=== PATIENT | female | born 1940 | race Caucasian/White ===

== ENCOUNTER 2022-11-15 21:53 | Inpatient (IN) ==
[2022-11-15] MEDS ORDERED: ACETAMINOPHEN 1,000 MG/100 ML BAG IV ONE (22:13)
[2022-11-15 22:42] LABS: BASOPHILS % (AUTO) 0.8 % (0.0-3.0); HEMATOCRIT 37.8 % (37.0-47.0); HEMOGLOBIN 12.7 g/dl (12.0-16.0); LYMPHOCYTES # (AUTO) 0.3 K/uL (0.60-3.4); LYMPHOCYTES % (AUTO) 23.4 (10.0-50.0); MEAN CORPUSCULAR HEMOGLOBIN 27.9 pg (27.0-31.0); MEAN CORPUSCULAR HGB CONC 33.6 (31.8-35.4); MEAN CORPUSCULAR VOLUME 83.1 fl (81.0-99.0); MONOCYTES # (AUTO) 0.1 K/uL (0.4-2.0); MONOCYTES % (AUTO) 7.8 (0-10); NEUTROPHILS # (AUTO) 0.9 K/ul (2.0-6.9); RDW COEFFICIENT OF VARIATION 13.1 % (11.6-14.8); RED BLOOD COUNT 4.55 10^6/ul (4.20-5.40)
--- NOTE | 2022-11-15 22:42 | ED.PDOC ---
General ED Provider: Dr. LAKHWINDER GONZALES DO Chief Complaint: Weakness Stated Complaint: Patient is a 82 yo F here for AMS Patient arrives febrile 101 with oxygen saturation 92% Patient smoked for 30 years but quit a long time ago Patient alert and oriented to self and location Patient wants to sleep and has no complaints Daughters report she is complaining of being cold and forgetting simple things for the last three days Patient has pneumonia recently and discharged on home oxygen but "she has not used it, she does not like it" Patient denies falls or injuires She is prescribed valium and norco but daughter gives it to her and has has not required it Patient has no recent surgeries Patient stable Time Seen by Provider: 11/15/22 22:00 Information Source: Patient and Family Primary Care Provider: JOSE DE LA TORRE MD Nursing and Triage Documentation Reviewed and Agree: Yes Does patient meet sepsis criteria?: Yes If yes, has appropriate treatment been initiated?: Yes System Inflammatory Response Syndrome: Temp 101F or Greater and Pulse >90 BPM Sepsis Protocol: For patient's 13 years and over: Temp is 96.8 and below OR 101 and greater Pulse >90 BPM Resp >20/minute Acutely Altered Mental Status Are patient's symptoms suggestive of a new infection, such as: -Pneumonia -Skin, Soft Tissue -Endocarditis -UTI -Bone, Joint Infection -Implantable Device -Acute Abdominal Infection -Wound Infection -Meningitis -Blood Stream Catheter Infection -Unknown Review of Systems Review Of Systems Constitutional: Denies Chills, Diaphoresis or Fever Eyes: Denies Blindness, Blurred vision or Vision change Ears, Nose, Mouth, Throat: Denies Ear pain, Ear discharge or Nose pain Respiratory: Denies Cough, Orthopnea or Short of air Cardiac: Denies Chest pain, Edema or Irregular heart rate GI: Denies Abdomen distended, Abdominal pain or Blood streaked bowels : Denies Burning, Dysuria, Discharge or Frequency Musculoskeletal: Denies Back pain, Gout, Joint pain or Joint swelling Skin: Denies Bruising, Change in color or Change in hair/nails Neurological: Denies Anxiety, Depressed or Emotional problems Endocrine: Reports No symptoms Hematologic/Lymphatic: Reports No symptoms All Other Systems: Reviewed and Negative PENDING SALE TO [facility] Medical History (Updated 11/16/22 @ 02:35 by LAKHWINDER GONZALES DO) Anemia D64.9 - Anemia, unspecified (ICD-10) Ankle fracture, right S82.891A - Other fracture of right lower leg, initial encounter for closed fracture (ICD-10) B12 deficiency E53.8 - Deficiency of other specified B group vitamins (ICD-10) Dyslipidemia E78.5 - Hyperlipidemia, unspecified (ICD-10) GERD (gastroesophageal reflux disease) K21.9 - Gastro-esophageal reflux disease without esophagitis (ICD-10) Hyperglycemia R73.9 - Hyperglycemia, unspecified (ICD-10) Irritable bowel syndrome K58.9 - Irritable bowel syndrome without diarrhea (ICD-10) Pacemaker Z95.0 - Presence of cardiac pacemaker (ICD-10) Presence of stent in coronary artery in patient with coronary artery disease I25.10 - Atherosclerotic heart disease of [place] coronary artery without angina pectoris (ICD-10) Z95.5 - Presence of coronary angioplasty implant and graft (ICD-10) Vitamin D deficiency E55.9 - Vitamin D deficiency, unspecified (ICD-10) Family History DAUGHTER Cancer FATHER Lung cancer Social History Smoking and tobacco status: Former smoker Alcohol intake: never Substance use type: does not use Adopted: No Caregiver/support person: No Foster care: No Household members: children Marital status: W / Lives independently: No Number of children: 4 Current occupational status: retired Do you think of yourself as: straight/heterosexual Current gender identity: female Seatbelt use: always Drives intoxicated or rides with intoxicated ross carrier driver: No Water heater temperature set < 120 degrees: Yes Working smoke detector in home: Yes Fire extinguisher in home: Yes Carbon monoxide detector in home: Yes Surgical History (Updated 07/10/22 @ 11:42 by MANJINDER NEVES APRN) H/O heart artery stent Z95.5 - Presence of coronary angioplasty implant and graft (ICD-10) History of arthroplasty of right ankle Z98.890 - Other specified postprocedural states (ICD-10) History of partial hysterectomy Z90.711 - Acquired absence of uterus with remaining cervical stump (ICD-10) Hx of appendectomy Z90.49 - Acquired absence of other specified parts of digestive tract (ICD- 10) Female Reproductive History Menstrual Hx Hysterectomy: Yes Physical Exam Physical Exam Appearance: Reports Well-appearing, Well-nourished and Thin Ill-appearing: Mild Pain Distress: Not Applicable Eyes: Reports LUDWIG, EOMI and Conjunctiva clear ENT: Reports Ears normal, Nose normal and Oropharynx normal; Denies TMs Occluded, Epistaxis, Erythema or Exudate Neck: Supple Respiratory: Reports Airway patent, Breath sounds clear and Breath sounds equal; Denies Crackles, Rhonchi or Wheezes Cardiovascular: Reports RRR and Pulses normal; Denies No rub GI/: Reports Soft, Nontender and Other (suprapubic ttp, no anton sign, no [place] ttp, no fluid wave) Musculoskeletal: Reports Normal strength and ROM intact Skin: Reports Warm and Dry Neurological: Reports Sensation intact and Motor intact Psychiatric: Reports Affect appropriate and Mood appropriate Interpretation Radiology Interpretation Radiology Interpretation By: ED Physician Radiology Results: Negative Exam Interpreted: CXR Xray Comments: no pneumothorax, no rib fracutes L chest wall Cardiac device EKG Interpretation Time of EKG #1: 22:28 Rate: Tachy Rhythm: Other (afib) Ectopy: None [place]: [place] ST Segment: Normal Interpretation: afib rate 106 no stemi no qt prolongation Critical Care Note Critical Care Note Total Critical Care Time (mins): 0 Course Course 11/15/22 22:35 11/15/22 22:35 Orders, Labs, Meds: Lab Review 11/15/22 11/15/22 11/16/22 22:35 23:00 01:25 WBC 1.28 L* RBC 4.55 Hgb 12.7 Hct 37.8 MCV 83.1 MCH 27.9 MCHC 33.6 RDW Coeff of Felix 13.1 Plt Count 74 L Immature Gran % (Auto) 0.0 Neut % (Auto) 68.0 Lymph % (Auto) 23.4 Luce % (Auto) 7.8 Eos % (Auto) 0.0 Baso % (Auto) 0.8 Neut # (Auto) 0.9 L Lymph # (Auto) 0.3 L Luce # (Auto) 0.1 L Eos # (Auto) 0.0 Baso # (Auto) 0.0 Immature Gran # (Auto) 0.0 Sodium 126.6 L Potassium 4.90 Chloride 95.8 L Carbon Dioxide 26.2 Anion Gap 9.50 BUN 24.3 H Creatinine 1.10 Estimated GFR (MDRD) 47.00 BUN/Creatinine Ratio 22.09 Glucose 102.3 Lactic Acid 0.84 Calcium 7.75 L Total Bilirubin 0.48 AST 109.1 H ALT 32.7 Alkaline Phosphatase 66.2 Troponin I 0.071 Total Protein 6.44 Albumin 3.61 Globulin 2.83 Albumin/Globulin Ratio 1.27 TSH 3.090 Free T4 1.40 Urine Color Yellow Urine Clarity Clear Urine pH 6.0 Ur Specific [place] 1.015 Urine Protein 3+ H Urine Glucose (UA) Negative Urine Ketones Negative Urine Blood Negative Urine Nitrite Negative Urine Bilirubin Negative Urine Urobilinogen 0.2 Ur Leukocyte Esterase Negative Urine Microscopic WBC 0-2 Ur Squamous Epith Cells Not present Amorphous Sediment 3+ Urine Bacteria Trace Urine Opiates Screen Positive H Ur Oxycodone Screen Negative Urine Methadone Screen Negative Ur Propoxyphene Screen Negative Ur Barbiturates Screen Negative U Tricyclic Antidepress Negative Ur Phencyclidine Scrn Negative Ur Amphetamine Screen Negative U Methamphetamines Scrn Negative U Benzodiazepines Scrn Positive H Urine Cocaine Screen Negative U Cannabinoids Screen Negative SARS CoV-2 RNA Rapid WON Negative Orders Category Date Time Status EKG-(ED ONLY) Stat CARDIO 11/15/22 22:12 Completed VBG DRAW REQUEST Stat CARDIO 11/15/22 22:15 Completed NPO REMINDER: IMAGING ONCE CARE 11/15/22 23:08 Completed BLOOD CULTURE Stat LAB 11/15/22 00:21 Received CBC W/ AUTO DIFF Stat LAB 11/15/22 22:35 Completed COMPREHENSIVE METABOLIC PANEL Stat LAB 11/15/22 22:35 Completed COVID [SARS COV-2 RNA RAPID WON] Stat LAB 11/15/22 23:00 Completed DRUG SCREEN (RAPID FOR ED) [DRUG SCREEN, URINE, RAPID] LAB 11/16/22 01:25 Completed Stat FREE T4 (FREE THYROXINE) Stat LAB 11/15/22 22:35 Completed LACTIC ACID Stat LAB 11/15/22 22:35 Completed OSMOLALITY,URINE Stat LAB 11/15/22 00:21 Received SERUM OSMOLALITY Stat LAB 11/15/22 00:21 Received THYROID STIMULATING HORMONE Stat LAB 11/15/22 22:35 Completed TROPONIN I Stat LAB 11/15/22 22:35 Completed TROPONIN I Stat LAB 11/16/22 02:24 Received UA [URINALYSIS C & S IF INDICATED] Stat LAB 11/16/22 01:25 Completed Acetaminophen Meds 11/15/22 22:13 Discontinued 1,000 mg in 100 ml IV ONCE Ceftriaxone/D5w 1 gm Premix [Rocephin 1 gm/50 ml D5w] Meds 11/15/22 23:06 Discontinued 1 gm in 50 ml IV ONCE Doxycycline Hyclate Inj [Doxy-100] 100 mg Meds 11/15/22 23:06 Discontinued 0.9 % Sodium Chloride [Sodium Chloride 100Ml] 100 ml IV ONCE Sodium Chloride 0.9% [Sodium Chloride] 1,000 ml Meds 11/16/22 02:33 Active IV 125 mls/hr Sodium Chloride 0.9% [Sodium Chloride] 1,000 ml Meds 11/15/22 23:06 Discontinued IV BOLUS Sodium Chloride 0.9% [Sodium Chloride] 500 ml Meds 11/16/22 00:[address] ABDOMEN/PELVIS W CONTRAST Stat RADS 11/15/22 23:[address] CHEST PE PROTOCOL Stat RADS 11/15/22 23:[address] HEAD W/O CONTRAST Stat RADS 11/15/22 22:14 Completed CXR [CHEST, 2 VIEWS PA & LAT] Stat RADS 11/15/22 22:13 Completed Medications Generic Name Dose Route Start Last Admin Trade Name Freq PRN Reason Stop Dose Admin Sodium Chloride 1,000 mls @ 125 mls/hr 11/16/22 02:33 Sodium Chloride IV 11/16/22 10:32 .Q8H STA Ondansetron HCl 4 mg 11/16/22 02:35 Ondansetron Hcl/Pf 4 Mg/2 Ml Sdv IVP Q6H PRN Nausea / Vomiting Discontinued Medications Generic Name Dose Route Start Last Admin Trade Name Freq PRN Reason Stop Dose Admin Acetaminophen 1,000 mg in 100 mls @ 400 mls/hr 11/15/22 22:13 11/15/22 22:43 Acetaminophen IV 11/15/22 22:27 400 mls/hr ONCE ONE Administration CEFTRIAXONE/D5W 1 GM PREMIX 1 gm in 50 mls @ 75 mls/hr 11/15/22 23:06 11/15/22 23:11 Rocephin 1 Gm/50 Ml D5w IV 11/15/22 23:45 75 mls/hr ONCE ONE Administration Doxycycline Hyclate 100 mg/ 100 mls @ 50 mls/hr 11/15/22 23:06 11/16/22 00:22 Sodium Chloride IV 11/16/22 01:05 50 mls/hr ONCE ONE Administration Sodium Chloride 1,000 mls @ 1,000 mls/hr 11/15/22 23:06 11/15/22 23:18 Sodium Chloride IV 11/16/22 00:05 1,000 mls/hr BOLUS STA Administration Sodium Chloride 500 mls @ 500 mls/hr 11/16/22 00:30 11/16/22 02:02 Sodium Chloride IV 11/16/22 01:29 500 mls/hr BOLUS STA Administration Vital Signs: Temp Pulse Resp BP Pulse Ox 11/16/22 00:08 99.2 F 11/15/22 23:01 101.1 F H 11/15/22 21:54 101 F H 93 30 H 114/54 L 92 L ofirmev for fever With fever and leukopenia Rocephin and doxycycline ordered fluid added in setting of diarrhea dn hyponatremia MDM: Patient is a 82 yo F her for diarrhea, dehydration, tiredness, feeling cold and family concerned about forgetfulness for 1.5 days Patient fever broke in the ED, BP improved with Fluid Hx from patient and family chart review by me Consults to Dr. De La Torre Cardiology and Hospitalist PAC Cowsert Exam concerning for hypoxia and fever 3+ labs and 3+ images reviewed by me I am concerned for bacteremia/septicemia causing problems UA shows no infection, chest imaging shows no infection, no concerns for meningitis, no skin rashes WDX: Hypoxia, R pleural effusion, leukopenia, hyponatremia, diarrhea, acute condition high complexity DDX: I considered shock, pneumothorax, acs, but these are less likely SDOH: Patient will improve with further care Patient Full code Family and I discussed care plan and all findings they are amenable to the plan All questions answered Patient admitted stable Sepsis fluids, Rocephin and doxycycline here Discharge Plan Discharge Patient Disposition: ADMITTED INPATIENT Discharge Problem: Fever, Leukopenia, Altered mental status, Acute hyponatremia, Diarrhea, LAD (lymphadenopathy), mediastinal, Pleural effusion, Hypoxia Did you review [place] CONFERENCE PRODUCER for ALL controlled substances?: Not Applicable ED Provider: LAKHWINDER GONZALES Physician Progress Note: []
[2022-11-15 22:51] LABS: ALANINE AMINOTRANSFERASE 32.7 U/L (0-35); ALBUMIN 3.61 g/dL (3.5-5.0); ALKALINE PHOSPHATASE 66.2 U/L (53-141); ASPARTATE AMINO TRANSFERASE 109.1 U/L (14-36); BILIRUBIN,TOTAL 0.48 mg/dL (0.2-1.3); BLOOD UREA NITROGEN 24.3 mg/dL (7-17); CALCIUM 7.75 mg/dL (8.4-10.2); CARBON DIOXIDE 26.2 mmol/L (22-30.0); CHLORIDE 95.8 mmol/L (98-107); CREATININE 1.1 mg/dL (0.60-1.30); GLUCOSE 102.3 mg/dL (74-106); POTASSIUM 4.9 mmol/L (3.5-5.1); SODIUM 126.6 mmol/L (134.5-145); TOTAL PROTEIN 6.44 g/dL (6.3-8.2)
--- NOTE | 2022-11-15 22:55 | CT ---
EXAM: CT BRAIN WITHOUT CONTRAST HISTORY: Altered mental status TECHNIQUE: CT of the brain without intravenous contrast. FINDINGS: There is no acute hemorrhage midline shift or mass effect. No hydrocephalus or abnormal e xtra-axial fluid collection. Generalized involutional atrophy, mild. Chronic microvascular changes white matter tracts, mild. No acute large vessel territorial infarct is seen. Atherosclerotic vascu lar calcifications are present. The bony cranium appears normal. The visualized paranasal sinuses a re clear. Soft tissues without significant abnormality. IMPRESSION: 1. No acute intracranial abnormality. Chronic changes as described. All CT scans are performed using dose optimization techniques as appropriate to the performed exam an d include at least one of the following: Automated exposure control, adjustment of the mA and/or kV according t o size, and the use of iterative reconstruction technique.
[2022-11-15 23:01] LABS: WHITE BLOOD COUNT 1.28 K/ul (4.6-10.2)
[2022-11-15 23:02] LABS: PLATELET COUNT 74 10^3/uL (140-440)
[2022-11-15 23:03] LABS: TROPONIN I 0.071 ng/ml (0.0000-0.120)
[2022-11-15] MEDS ORDERED: SODIUM CHLORIDE 1,000 ML IV STA (23:06)
[2022-11-15] MEDS ORDERED: DOXY-100 100 MG in SODIUM CHLORIDE 100ML 100 ML IV ONE (23:06)
[2022-11-15] MEDS ORDERED: ROCEPHIN 1 GM/50 ML D5W 1 GM/50 ML BAG IV ONE (23:06)
--- NOTE | 2022-11-15 23:07 | DI ---
EXAM: PA AND LATERAL CHEST. HISTORY: Cough. Fever. There is a two lead pacemaker. The cardiac silhouette is enlarged. Pulmonary vasculature is within normal limits. There is skin fold artifact projecting over the right hemithorax. There are calcifie d granulomas. There is trace right basilar atelectasis and/or pneumonia. Impression: Trace right basilar atelectasis and/or pneumonia. Cardiomegaly.
[2022-11-15 23:21] LABS: THYROID STIMULATING HORMONE 3.09 uIU/L (0.465-4.68)
[2022-11-15 23:42] LABS: SARS COV-2 RNA RAPID NAAT NEGATIVE (NEGATIVE)
--- NOTE | 2022-11-16 00:19 | CT ---
EXAM: CT ANGIOGRAPHY OF THE CHEST History: Hypoxia, fever Technique: 2.[address] of the chest utilizing CT angiography protocol. Multiplanar and m aximum intensity projection reformations were performed. FINDINGS: Ankle adequate for evaluation of pulmonary arteries and aorta. There are no pulmonary art janelle filling defects. Minor atelectasis in the medial right lung base and trace right pleural fluid. The lungs are clear otherwise. Mediastinal lymph node abundance. Individual mediastinal lymph node s measuring maximal short-axis 1.2 cm. Subcarinal lymph node group measuring up to 3.8 x 3.2 cm. At herosclerotic calcification of the aorta. There is focal aneurysmal dilation of the aortic arch jero uring 3.8 x 3.2 cm. No aortic dissection. Dilated atrial chambers of the heart. No acute findings of the skeleton. Left chest wall pacemaker. No chest wall lymphadenopathy appreciated. Exaggerated thoracic kyphosis. No acute findings of the upper abdomen. Impression: 1. No evidence of pulmonary artery thrombus 2. Mediastinal lymph node abundance and borderline enlargement 3. A tortuous ectatic thoracic aorta. 4. Trace right pleural fluid and trace atelectasis in the medial right lung base. 5. No acute findings of the chest otherwise All CT scans are performed using dose optimization techniques as appropriate to the performed exam an d include at least one of the following: Automated exposure control, adjustment of the mA and/or kV according t o size, and the use of iterative reconstruction technique.
[2022-11-16] MEDS ORDERED: SODIUM CHLORIDE 500 ML IV STA (00:30)
--- NOTE | 2022-11-16 00:31 | CT ---
EXAM: CT OF THE ABDOMEN AND PELVIS WITH CONTRAST History: Fever, abdominal pain, leukopenia Technique: 2.[address] of the abdomen and pelvis following intravenous contrast FINDINGS: See chest CT for lung base details. No significant liver abnormality. The adrenals, pancr eas and spleen are unremarkable. The stomach and hiatus are unremarkable.Cholelithiasis without julio césar cholecystic inflammation or abnormal gallbladder distension. Nonobstructing calcifications in the ri ght kidney versus vascular calcifications. No hydronephrosis, inflammation or hydroureter on either side. Atherosclerotic calcification of the aorta with maximum infrarenal diameter 3.3 cm. No aortic dissection or occlusive disease. Patent major visceral arteries. The appendix is not seen. Bowel loops demonstrate normal caliber. No inflamatory change seen in the mesentery or retroperitoneum. Colonic diverticula of the sigmoid. No pericolonic inflammation. Prior hysterectomy. Normal urinar y bladder. No acute findings of the skeleton. Impression: 1. No inflammatory process, bowel or urinary obstruction 2. Cholelithiasis without CT evidence of cholecystitis 3. Abdominal aortic aneurysm with maximum infrarenal diameter 3.3 cm. 4. Colonic diverticulosis without evidence acute diverticulitis 5. Nonobstructing nephrolithiasis versus vascular calcifications of the right kidney. All CT scans are performed using dose optimization techniques as appropriate to the performed exam an d include at least one of the following: Automated exposure control, adjustment of the mA and/or kV according t o size, and the use of iterative reconstruction technique.
[2022-11-16 01:36] LABS: BILIRUBIN,URINE Negative (NEGATIVE); CLARITY,URINE Clear (CLEAR); COLOR,URINE Yellow (YELLOW); GLUCOSE, URINE (UA) Negative (NEGATIVE); KETONES,URINE Negative (NEGATIVE); LEUKOCYTE ESTERASE ,URINE Negative (NEGATIVE); NITRITE,URINE Negative (NEGATIVE); PROTEIN,URINE 3+ (NEGATIVE); URINE, BLOOD Negative (NEGATIVE); UROBILINOGEN,URINE 0.2 (0.2)
[2022-11-16 01:59] LABS: AMORPHOUS SEDIMENT,UR 3+ (NOT PRESENT); AMPHETAMINE SCREEN,URINE NEGATIVE (NEGATIVE); BACTERIA,URINE TRACE (NOT PRESENT); BARBITURATE SCREEN,URINE NEGATIVE (NEGATIVE); BENZODIAZEPINES SCREEN,URINE POSITIVE (NEGATIVE); CANNABINOID SCREEN,URINE NEGATIVE (NEGATIVE); COCAIN SCREEN,URINE NEGATIVE (NEGATIVE); METHADONE URINE SCREEN NEGATIVE (NEGATIVE); METHAMPHETAMINES SCREEN,URINE NEGATIVE (NEGATIVE); OPIATE SCREEN,URINE POSITIVE (NEGATIVE); OXYCODONE URINE SCREEN NEGATIVE (NEGATIVE); PHENCYCLIDINE SCREEN,URINE NEGATIVE (NEGATIVE); PROPOXYPHENE URINE SCREEN NEGATIVE (NEGATIVE); SQUAMOUS EPITHELIAL CELL,UR NOT PRESENT (0-5); TRICYCLIC ANTIDEPRESSANTS URIN NEGATIVE (NEGATIVE); URINE WBC, MICROSCOPIC 0-2 (0-2)
[2022-11-16] MEDS ORDERED: SODIUM CHLORIDE 1,000 ML IV STA (02:33)
[2022-11-16] MEDS ORDERED: ZOFRAN 4 MG/2 ML IVP PRN (02:35)
[2022-11-16 03:07] VITALS: BMI 19.2
[2022-11-16 05:50] LABS: HEMOGLOBIN 11.6 g/dl (12.0-16.0); IMMATURE GRANULOCYTE % (AUTO) 0.9 % (0.0-5.0); LYMPHOCYTES # (AUTO) 0.3 K/uL (0.60-3.4); LYMPHOCYTES % (AUTO) 25.7 (10.0-50.0); MEAN CORPUSCULAR HEMOGLOBIN 28.1 pg (27.0-31.0); MEAN CORPUSCULAR HGB CONC 33.1 (31.8-35.4); MEAN CORPUSCULAR VOLUME 84.7 fl (81.0-99.0); MONOCYTES # (AUTO) 0.1 K/uL (0.4-2.0); MONOCYTES % (AUTO) 6.2 (0-10); NEUTROPHILS # (AUTO) 0.8 K/ul (2.0-6.9); NEUTROPHILS % (AUTO) 67.2 % (42.2-75.2); PLATELET COUNT 67 10^3/uL (140-440); RDW COEFFICIENT OF VARIATION 13.3 % (11.6-14.8); RED BLOOD COUNT 4.13 10^6/ul (4.20-5.40)
[2022-11-16 06:02] LABS: ALANINE AMINOTRANSFERASE 31.8 U/L (0-35); ALBUMIN 3.02 g/dL (3.5-5.0); ALKALINE PHOSPHATASE 55.5 U/L (53-141); ASPARTATE AMINO TRANSFERASE 99.4 U/L (14-36); BILIRUBIN,TOTAL 0.29 mg/dL (0.2-1.3); BLOOD UREA NITROGEN 21.2 mg/dL (7-17); CALCIUM 6.85 mg/dL (8.4-10.2); CARBON DIOXIDE 25.9 mmol/L (22-30.0); CHLORIDE 100.9 mmol/L (98-107); CREATININE 0.96 mg/dL (0.60-1.30); GLUCOSE 86.7 mg/dL (74-106); MAGNESIUM 1.42 mg/dL (1.6-2.3); POTASSIUM 4.07 mmol/L (3.5-5.1); SODIUM 129.9 mmol/L (134.5-145); TOTAL PROTEIN 5.63 g/dL (6.3-8.2)
[2022-11-16 06:16] LABS: WHITE BLOOD COUNT 1.13 K/ul (4.6-10.2)
[2022-11-16] MEDS: ROCEPHIN 1 GM/50 ML D5W 1 GM/50 ML BAG IV SCH (09:28)
[2022-11-16] MEDS: DOXY-100 100 MG in SODIUM CHLORIDE 100ML 100 ML IV SCH ×2 (10:08→21:17)
--- NOTE | 2022-11-16 11:00 | PCM ---
Date of Service Date Seen by Provider: 11/16/22 Time Seen by Provider: 09:10 Admit Day/Time Admission Date: 11/16/22 Reason for Admission Chief Complaint: PNEUMONIA Hospital Provider Hospital Provider: VALERI GUZMAN, [facility] Primary Care Physician Primary Care Physician: JOSE DE LA TORRE MD History of Present Illness History of Present Illness: 82-year-old female presented to the ER last night with fever, weakness and diarrhea. Family states patient has had diarrhea since . Daughter reported that she had similar symptoms last week as well. Also reports that yesterday she became altered and was talking out of her head. Family denies any known history of cancer. Patient patient reports weakness and has had 2 episodes of watery diarrhea today. Denies any blood or dark tarry stools. Has had fever and chills. Denies any nausea or vomiting. Decrease in appetite noted. Denies any abdominal pain chest pain shortness of breath or other symptoms. Case Discussed With Case Discussed With: Patient's case was discussed with the ER Physicians, Dr. Bowen [facility] Medical History Anemia D64.9 - Anemia, unspecified (ICD-10) Ankle fracture, right S82.891A - Other fracture of right lower leg, initial encounter for closed fracture (ICD-10) B12 deficiency E53.8 - Deficiency of other specified B group vitamins (ICD-10) Dyslipidemia E78.5 - Hyperlipidemia, unspecified (ICD-10) GERD (gastroesophageal reflux disease) K21.9 - Gastro-esophageal reflux disease without esophagitis (ICD-10) Hyperglycemia R73.9 - Hyperglycemia, unspecified (ICD-10) Irritable bowel syndrome K58.9 - Irritable bowel syndrome without diarrhea (ICD-10) Pacemaker Z95.0 - Presence of cardiac pacemaker (ICD-10) Presence of stent in coronary artery in patient with coronary artery disease I25.10 - Atherosclerotic heart disease of [place] coronary artery without angina pectoris (ICD-10) Z95.5 - Presence of coronary angioplasty implant and graft (ICD-10) Vitamin D deficiency E55.9 - Vitamin D deficiency, unspecified (ICD-10) Surgical History H/O heart artery stent Z95.5 - Presence of coronary angioplasty implant and graft (ICD-10) History of arthroplasty of right ankle Z98.890 - Other specified postprocedural states (ICD-10) History of partial hysterectomy Z90.711 - Acquired absence of uterus with remaining cervical stump (ICD-10) Hx of appendectomy Z90.49 - Acquired absence of other specified parts of digestive tract (ICD- 10) Family History DAUGHTER Cancer FATHER Lung cancer Social History Smoking and tobacco status: Former smoker Alcohol intake: never Substance use type: does not use Adopted: No Caregiver/support person: No Foster care: No Household members: children Marital status: W / Lives independently: No Number of children: 4 Current occupational status: retired Do you think of yourself as: straight/heterosexual Current gender identity: female Seatbelt use: always Drives intoxicated or rides with intoxicated motor bus driver: No Water heater temperature set < 120 degrees: Yes Working smoke detector in home: Yes Fire extinguisher in home: Yes Carbon monoxide detector in home: Yes Allergies Allergies Allergy/AdvReac Type Severity Reaction Status Date / Time No Known Allergies Allergy Verified 11/15/22 22:11 Current Medications Home Medications levothyroxine 50 mcg tablet (Synthroid) 50 mcg PO QDAC 03/07/19 [History Confirmed 11/15/22 Last Taken Unknown] famotidine 40 mg tablet (Pepcid) 40 mg PO BID PRN HEARTBURN/REFLUX 07/10/22 [History Confirmed 11/15/22 Last Taken Unknown] OXYGENCONCENTRATOR #1 ea 08/04/22 [Rx Confirmed 11/15/22 Last Taken Unknown] carvedilol 12.5 mg tablet See Rx Instructions .Route .COMPLEX #180 tabs 08/18/22 [Rx Confirmed 11/15/22 Last Taken Unknown] apixaban 2.5 mg tablet (Eliquis) See Rx Instructions .Route .COMPLEX #60 tabs 09/16/22 [Rx Confirmed 11/15/22 Last Taken Unknown] hydrocodone 5 mg-acetaminophen 325 mg tablet 1 tab PO BID PRN Pain #60 tabs 11/14/22 [Rx Confirmed 11/15/22 Last Taken Unknown] diazepam 2 mg tablet (Valium) 2 mg PO BID PRN dizziness 11/15/22 [History Confirmed 11/15/22 Last Taken Unknown] losartan 50 mg tablet 50 mg PO BEDTIME 11/15/22 [History Confirmed 11/15/22 Last Taken Unknown] meclizine 25 mg chewable tablet (Antivert) 25 mg PO TID PRN dizziness 11/15/22 [History Confirmed 11/15/22 Last Taken Unknown] Home Acetaminophen (Acetaminophen 325 Mg Tablet) 650 mg PO Q8H PRN PRN Reason: other CEFTRIAXONE/D5W 1 GM PREMIX (Rocephin 1 Gm/50 Ml D5w) 1 gm in 50 mls @ 75 mls/hr IV DAILY ANTIONETTE Stop: 11/19/22 08:59 Last Admin: 11/16/22 09:28 Dose: 75 mls/hr Doxycycline Hyclate 100 mg/ (Sodium Chloride) 100 mls @ 50 mls/hr IV Q12HR ANTIONETTE Stop: 11/19/22 08:59 Last Admin: 11/16/22 10:08 Dose: 50 mls/hr Ondansetron HCl (Ondansetron Hcl/Pf 4 Mg/2 Ml Sdv) 4 mg IVP Q6HR PRN PRN Reason: Nausea / Vomiting Discontinued Medications Acetaminophen (Acetaminophen) 1,000 mg in 100 mls @ 400 mls/hr IV ONCE ONE Stop: 11/15/22 22:27 Last Admin: 11/15/22 22:43 Dose: 400 mls/hr CEFTRIAXONE/D5W 1 GM PREMIX (Rocephin 1 Gm/50 Ml D5w) 1 gm in 50 mls @ 75 mls/hr IV ONCE ONE Stop: 11/15/22 23:45 Last Admin: 11/15/22 23:11 Dose: 75 mls/hr Doxycycline Hyclate 100 mg/ (Sodium Chloride) 100 mls @ 50 mls/hr IV ONCE ONE Stop: 11/16/22 01:05 Last Admin: 11/16/22 00:22 Dose: 50 mls/hr Sodium Chloride (Sodium Chloride) 1,000 mls @ 1,000 mls/hr IV BOLUS STA Stop: 11/16/22 00:05 Last Admin: 11/15/22 23:18 Dose: 1,000 mls/hr Sodium Chloride (Sodium Chloride) 500 mls @ 500 mls/hr IV BOLUS STA Stop: 11/16/22 01:29 Last Admin: 11/16/22 02:02 Dose: 500 mls/hr Sodium Chloride (Sodium Chloride) 1,000 mls @ 125 mls/hr IV .Q8H STA Stop: 11/16/22 10:32 Last Admin: 11/16/22 03:09 Dose: 125 mls/hr Review of Systems Constitutional: Reports Fever, Chills, Weakness and Loss of appetite Head: Reports Normocephalic and Atraumatic Eyes: Reports No symptoms Ears: Reports No symptoms Nose: Reports No symptoms Mouth: Reports No symptoms Throat: Reports No symptoms Cardiovascular: Reports No symptoms Respiratory: Reports No symptoms Gastrointestinal: Reports Diarrhea Genitourinary: Reports No Symptoms Musculoskeletal: Reports No symptoms Endocrine: Reports No symptoms Hematology: Reports No symptoms Immunology: Reports No symptoms Neurological: Reports No symptoms Psychiatric: Reports No symptoms Physical examination Most Recent Vital Signs: Most Recent Vital Signs Temperature 98 F 11/16/22 06:00 Temperature Source Oral 11/16/22 06:00 Temperature Source Oral 11/16/22 00:08 Pulse Rate 80 11/16/22 06:00 Respiratory Rate 18 11/16/22 08:00 Blood Pressure 100/57 L 11/16/22 06:00 Blood Pressure Mean 71 11/16/22 06:00 Blood Pressure Right Arm 113/66 11/16/22 02:58 Blood Pressure Location Left Arm 11/16/22 06:00 Blood Pressure Position Supine 11/16/22 06:00 O2 Sat by Pulse Oximetry 96 11/16/22 06:00 Oxygen Delivery Method Room Air 11/16/22 08:00 Height 5 ft 6 in 11/16/22 02:58 Weight 119 lb 11/16/22 02:58 Telemetry Type Remote Telemetry 11/16/22 07:00 Telemetry Monitoring Continues 11/16/22 07:00 Irregular Telemetry Rate (Approximate) 80-90 BPM 11/16/22 03:33 Telemetry Heart Rate 84 11/16/22 07:00 EKG QRS Interval 0.08 11/16/22 07:00 Telemetry Strip Reading AFIB 11/16/22 07:00 Appearance: Positive No Apparent Distress, Alert and Oriented x3, Ill-Appearing and Thin Skin: Positive Warm and Good Turgor HEENT: Positive Normocephalic, Atraumatic and PERRLA Neck: Positive Supple and Midline Trachea Chest/Lungs: Positive Symmetrical With Equal Breath Sounds, Clear to Auscultation Bilaterally and Good Air Movement all 4 Lung Guzman Heart: Positive RRR and Pulses Normal GI/: Positive Soft, Nontender, Bowel Sounds Normal, No Distention and No Organomegaly Musculoskeletal: Positive Not Examined Neurological: Positive Alert and Oriented; Negative Muscle Strength 5/5 in Upper and Lower Extremities Bilaterally (4/5 strength) Psychiatric: Positive Oriented x4 Labs This Visit Labs This Visit: Labs This Visit 11/15/22 11/15/22 11/16/22 22:35 23:00 01:25 WBC 1.28 L* RBC 4.55 Hgb 12.7 Hct 37.8 MCV 83.1 MCH 27.9 MCHC 33.6 RDW Coeff of Felix 13.1 Plt Count 74 L Immature Gran % (Auto) 0.0 Neut % (Auto) 68.0 Lymph % (Auto) 23.4 [place] % (Auto) 7.8 Eos % (Auto) 0.0 Baso % (Auto) 0.8 Neut # (Auto) 0.9 L Lymph # (Auto) 0.3 L [place] # (Auto) 0.1 L Eos # (Auto) 0.0 Baso # (Auto) 0.0 Immature Gran # (Auto) 0.0 Sodium 126.6 L Potassium 4.90 Chloride 95.8 L Carbon Dioxide 26.2 Anion Gap 9.50 BUN 24.3 H Creatinine 1.10 Estimated GFR (MDRD) 47.00 BUN/Creatinine Ratio 22.09 Glucose 102.3 Lactic Acid 0.84 Calcium 7.75 L Magnesium Total Bilirubin 0.48 AST 109.1 H ALT 32.7 Alkaline Phosphatase 66.2 Troponin I 0.071 Total Protein 6.44 Albumin 3.61 Globulin 2.83 Albumin/Globulin Ratio 1.27 TSH 3.090 Free T4 1.40 Urine Color Yellow Urine Clarity Clear Urine pH 6.0 Ur Specific [place] 1.015 Urine Protein 3+ H Urine Glucose (UA) Negative Urine Ketones Negative Urine Blood Negative Urine Nitrite Negative Urine Bilirubin Negative Urine Urobilinogen 0.2 Ur Leukocyte Esterase Negative Urine Microscopic WBC 0-2 Ur Squamous Epith Cells Not present Amorphous Sediment 3+ Urine Bacteria Trace Urine Opiates Screen Positive H Ur Oxycodone Screen Negative Urine Methadone Screen Negative Ur Propoxyphene Screen Negative Ur Barbiturates Screen Negative U Tricyclic Antidepress Negative Ur Phencyclidine Scrn Negative Ur Amphetamine Screen Negative U Methamphetamines Scrn Negative U Benzodiazepines Scrn Positive H Urine Cocaine Screen Negative U Cannabinoids Screen Negative SARS CoV-2 RNA Rapid WON Negative 11/16/22 11/16/22 02:24 05:39 WBC 1.13 L* RBC 4.13 L Hgb 11.6 L Hct 35.0 L MCV 84.7 MCH 28.1 MCHC 33.1 RDW Coeff of Felix 13.3 Plt Count 67 L Immature Gran % (Auto) 0.9 Neut % (Auto) 67.2 Lymph % (Auto) 25.7 [place] % (Auto) 6.2 Eos % (Auto) 0.0 Baso % (Auto) 0.0 Neut # (Auto) 0.8 L Lymph # (Auto) 0.3 L [place] # (Auto) 0.1 L Eos # (Auto) 0.0 Baso # (Auto) 0.0 Immature Gran # (Auto) 0.0 Sodium 129.9 L Potassium 4.07 Chloride 100.9 Carbon Dioxide 25.9 Anion Gap 7.17 BUN 21.2 H Creatinine 0.96 Estimated GFR (MDRD) 55.00 BUN/Creatinine Ratio 22.08 Glucose 86.7 Lactic Acid Calcium 6.85 L Magnesium 1.42 L Total Bilirubin 0.29 AST 99.4 H ALT 31.8 Alkaline Phosphatase 55.5 Troponin I 0.068 Total Protein 5.63 L Albumin 3.02 L Globulin 2.61 Albumin/Globulin Ratio 1.15 TSH Free T4 Urine Color Urine Clarity Urine pH Ur Specific [place] Urine Protein Urine Glucose (UA) Urine Ketones Urine Blood Urine Nitrite Urine Bilirubin Urine Urobilinogen Ur Leukocyte Esterase Urine Microscopic WBC Ur Squamous Epith Cells Amorphous Sediment Urine Bacteria Urine Opiates Screen Ur Oxycodone Screen Urine Methadone Screen Ur Propoxyphene Screen Ur Barbiturates Screen U Tricyclic Antidepress Ur Phencyclidine Scrn Ur Amphetamine Screen U Methamphetamines Scrn U Benzodiazepines Scrn Urine Cocaine Screen U Cannabinoids Screen SARS CoV-2 RNA Rapid WON Imaging Imaging: EXAM: PA AND LATERAL CHEST. There is a two lead pacemaker. The cardiac silhouette is enlarged. Pulmonary vasculature is within normal limits. There is skin fold artifact projecting over the right hemithorax. There are calcified granulomas. There is trace right basilar atelectasis and/or pneumonia. Impression: Trace right basilar atelectasis and/or pneumonia. Cardiomegaly. EXAM: CT BRAIN WITHOUT CONTRAST FINDINGS: There is no acute hemorrhage midline shift or mass effect. No hydrocephalus or abnormal extra-axial fluid collection. Generalized involutional atrophy, mild. Chronic microvascular changes white matter tracts, mild. No acute large vessel territorial infarct is seen. Atherosclerotic vascular calcifications are present. The bony cranium appears normal. The visualized paranasal sinuses are clear. Soft tissues without significant abnormality. IMPRESSION: 1. No acute intracranial abnormality. Chronic changes as described. EXAM: CT ANGIOGRAPHY OF THE CHEST FINDINGS: Ankle adequate for evaluation of pulmonary arteries and aorta. There are no pulmonary artery filling defects. Minor atelectasis in the medial right lung base and trace right pleural fluid. The lungs are clear otherwise. Mediastinal lymph node abundance. Individual mediastinal lymph nodes measuring maximal short-axis 1.2 cm. Subcarinal lymph node group measuring up to 3.8 x 3.2 cm. Atherosclerotic calcification of the aorta. There is focal aneurysmal dilation of the aortic arch measuring 3.8 x 3.2 cm. No aortic dissection. Dilated atrial chambers of the heart. No acute findings of the skeleton. Left chest wall pacemaker. No chest wall lymphadenopathy appreciated. Exaggerated thoracic kyphosis. No acute findings of the upper abdomen. Impression: 1. No evidence of pulmonary artery thrombus 2. Mediastinal lymph node abundance and borderline enlargement 3. A tortuous ectatic thoracic aorta. 4. Trace right pleural fluid and trace atelectasis in the medial right lung base. 5. No acute findings of the chest otherwise EXAM: CT OF THE ABDOMEN AND PELVIS WITH CONTRAST FINDINGS: See chest CT for lung base details. No significant liver abnormality. The adrenals, pancreas and spleen are unremarkable. The stomach and hiatus are unremarkable.Cholelithiasis without pericholecystic inflammation or abnormal gallbladder distension. Nonobstructing calcifications in the right kidney versus vascular calcifications. No hydronephrosis, inflammation or hydroureter on either side. Atherosclerotic calcification of the aorta with maximum infrarenal diameter 3.3 cm. No aortic dissection or occlusive disease. Patent major visceral arteries. The appendix is not seen. Bowel loops demonstrate normal caliber. No inflamatory change seen in the mesentery or retroperitoneum. Colonic diverticula of the sigmoid. No pericolonic inflammation. Prior hysterectomy. Normal urinary bladder. No acute findings of the skeleton. Impression: 1. No inflammatory process, bowel or urinary obstruction 2. Cholelithiasis without CT evidence of cholecystitis 3. Abdominal aortic aneurysm with maximum infrarenal diameter 3.3 cm. 4. Colonic diverticulosis without evidence acute diverticulitis 5. Nonobstructing nephrolithiasis versus vascular calcifications of the right kidney. Review Statement Review Statement: I have independently reviewed and interpreted the labs/EKGs/imaging that were ordered by the ER provider. I have reviewed all outside records that are available currently in our EMR including imaging/notes/labs from previous visits. Plan Plan: 1. Sepsis, unknown origin - blood cultures pending, started on rocephin and doxycycline due to chest x-ray showing concern for pneumonia, CT scans all negative, urinalysis negative, continue current abx pending blood cultures 2. Pancytopenia with fever - mediastinal lymph nodes enlarged on CT, no history of cancer that family or patient is aware of, family wishes to wait 24 hours to see if infection is present 3. Hyponatremia - improving, continue NS@125mL/hr, telemetry, repeat labs in am 4. Diarrhea - x 4 days, checking C diff and stool studies 5. Atrial Fibrillation - chronic, not in RVR, continue home eliquis and carvedilol 6. Hypothyroidism - chronic, continue home medications 7. Hypertension - chronic, continue home medications DVT Prophylaxis: Eliquis Time Spent: Greater than 80 minutes spent with patient, 50% of the time spent with this patient was devoted to counseling and coordination of care. [facility] minutes spent discussing advance care planning. Disposition: Admit to: Med/surg Inpatient Discussed Plan of Care with Dr. Victor M De La Torre. Medications Medication Orders: Medications Ordered Category Date Time Status Acetaminophen [Tylenol] Meds 11/16/22 03:01 Active 650 mg PO Q8H PRN Ceftriaxone/D5w 1 gm Premix [Rocephin 1 gm/50 ml D5w] Meds 11/16/22 09:00 Active 1 gm in 50 ml IV DAILY Doxycycline Hyclate Inj [Doxy-100] 100 mg Meds 11/16/22 09:00 Active 0.9 % Sodium Chloride [Sodium Chloride 100Ml] 100 ml IV Q12HR Ondansetron HCl/Pf [Zofran 4 mg/2 ml] Meds 11/16/22 02:35 Active 4 mg IVP Q6HR PRN
[2022-11-16 11:24] LABS: VBG HCO3 27.8 (22-26); VBG OXYGEN SATURATION 71.6 (60-80); VBG PH 7.44 (7.30-7.40)
[2022-11-16] MEDS: SODIUM CHLORIDE 1,000 ML IV SCH ×2 (13:44→21:17)
[2022-11-16] MEDS: TYLENOL PO PRN (13:50)
[2022-11-16] MEDS ORDERED: COREG PO SCH (17:00)
[2022-11-16] MEDS: COREG PO SCH (17:40)
[2022-11-16] MEDS: ELIQUIS PO SCH (17:49)
[2022-11-16] MEDS ORDERED: COZAAR PO SCH ×2 (18:00→21:00)
[2022-11-16] MEDS: NORCO 5-325 PO PRN (19:20)
[2022-11-16] MEDS ORDERED: REGLAN PO PRN (20:02)
[2022-11-16] MEDS ORDERED: ELIQUIS PO SCH (21:00)
[2022-11-17] MEDS: TYLENOL PO PRN ×2 (01:41→09:11)
[2022-11-17 05:32] LABS: HEMATOCRIT 36.1 % (37.0-47.0); HEMOGLOBIN 11.7 g/dl (12.0-16.0); MEAN CORPUSCULAR HEMOGLOBIN 28.3 pg (27.0-31.0); MEAN CORPUSCULAR HGB CONC 32.4 (31.8-35.4); MEAN CORPUSCULAR VOLUME 87.4 fl (81.0-99.0); PLATELET COUNT 59 10^3/uL (140-440); RDW COEFFICIENT OF VARIATION 13.6 % (11.6-14.8); RED BLOOD COUNT 4.13 10^6/ul (4.20-5.40)
[2022-11-17] MEDS: COREG PO SCH (05:39)
[2022-11-17] MEDS: SODIUM CHLORIDE 1,000 ML IV SCH ×4 (05:39→23:42)
[2022-11-17] MEDS: ELIQUIS PO SCH ×2 (05:40→17:29)
[2022-11-17 05:45] LABS: WHITE BLOOD COUNT 1.53 K/ul (4.6-10.2)
[2022-11-17 05:51] LABS: ALANINE AMINOTRANSFERASE 35.1 U/L (0-35); ALBUMIN 2.68 g/dL (3.5-5.0); ALKALINE PHOSPHATASE 55.8 U/L (53-141); ASPARTATE AMINO TRANSFERASE 124.9 U/L (14-36); BILIRUBIN,TOTAL 0.26 mg/dL (0.2-1.3); BLOOD UREA NITROGEN 14.7 mg/dL (7-17); CALCIUM 7.27 mg/dL (8.4-10.2); CARBON DIOXIDE 24.9 mmol/L (22-30.0); CHLORIDE 104.6 mmol/L (98-107); CREATININE 0.77 mg/dL (0.60-1.30); GLUCOSE 83.5 mg/dL (74-106); POTASSIUM 4.16 mmol/L (3.5-5.1); SODIUM 132.1 mmol/L (134.5-145); TOTAL PROTEIN 5.21 g/dL (6.3-8.2)
[2022-11-17 06:15] LABS: ANISOCYTOSIS NOT PRESENT (NOT PRESENT)
[2022-11-17 06:26] LABS: NEUTROPHILS % (AUTO) 73.8 % (42.2-75.2)
[2022-11-17 06:28] LABS: MONOCYTES % (AUTO) 5.2 (0-10)
[2022-11-17] MEDS: NORCO 5-325 PO PRN ×3 (06:44→20:12)
[2022-11-17] MEDS: ROCEPHIN 1 GM/50 ML D5W 1 GM/50 ML BAG IV SCH (09:06)
[2022-11-17] MEDS: DOXY-100 100 MG in SODIUM CHLORIDE 100ML 100 ML IV SCH ×2 (11:01→20:12)
--- NOTE | 2022-11-17 11:14 | PCM.PROG ---
Date/Time Seen Date Seen by Provider: 11/17/22 Time Seen by Provider: 09:30 Provider [facility] Chief Complaint Chief Complaint: PNEUMONIA Subjective Subjective: Complaints of epigastric abdominal pain. Had diarrhea throughout the night. Last episode at 7 am. Has had some appetite this AM. Still running fever. Daughter concerned for blood in stool. Objective Appearance: Positive No Apparent Distress, Alert and Oriented x3, Ill-Appearing and Thin Chest/Lungs: Positive Symmetrical With Equal Breath Sounds, Clear to Auscultation Bilaterally and Good Air Movement all 4 Lung Gu[place]man Heart: Positive RRR and Pulses Normal GI/: Positive Soft, Nontender, Bowel Sounds Normal, No Distention and No Organomegaly Neurological: Positive Alert and Oriented Vital Signs Vital Signs: Vital Signs: Last 24 Hours 11/16/22 13:00 11/16/22 14:00 11/16/22 13:47 Temperature 98.2 F 100.5 F H Temperature Source Temporal Artery Scan Oral Pulse Rate 101 H Respiratory Rate 20 Blood Pressure 114/70 Blood Pressure Mean 84 Blood Pressure Location Left Arm Blood Pressure Position Supine O2 Sat by Pulse Oximetry 93 L Oxygen Delivery Method Room Air Room Air Oxygen Flow Rate Telemetry Type Remote Telemetry Telemetry Monitoring Continues Irregular Telemetry Rate (Approximate) 90-100 BPM Telemetry Heart Rate EKG QRS Interval 0.06 Telemetry Strip Reading AFIB 11/16/22 15:06 11/16/22 22:00 11/16/22 19:00 Temperature 99.2 F 97.9 F Temperature Source Oral Temporal Artery Scan Pulse Rate 82 Respiratory Rate 18 Blood Pressure 102/66 Blood Pressure Mean 78 Blood Pressure Location Right Arm Blood Pressure Position Supine O2 Sat by Pulse Oximetry 96 Oxygen Delivery Method Room Air Room Air Oxygen Flow Rate Telemetry Type Remote Telemetry Telemetry Monitoring Continues Irregular Telemetry Rate (Approximate) 90-100 BPM Telemetry Heart Rate EKG QRS Interval 0.07 Telemetry Strip Reading AFIB 11/16/22 20:00 11/17/22 01:00 11/17/22 05:06 Temperature Temperature Source Pulse Rate Respiratory Rate 19 Blood Pressure Blood Pressure Mean Blood Pressure Location Blood Pressure Position O2 Sat by Pulse Oximetry 96 Oxygen Delivery Method Room Air Nasal Cannula Oxygen Flow Rate 2 Telemetry Type Remote Telemetry Telemetry Monitoring Continues Irregular Telemetry Rate (Approximate) Telemetry Heart Rate 95 EKG QRS Interval 0.08 Telemetry Strip Reading AFIB 11/17/22 05:21 11/17/22 07:00 Temperature 98 F Temperature Source Temporal Artery Scan Pulse Rate 97 Respiratory Rate 20 Blood Pressure 125/85 Blood Pressure Mean 98 Blood Pressure Location Right Arm Blood Pressure Position Supine O2 Sat by Pulse Oximetry 97 Oxygen Delivery Method Nasal Cannula Oxygen Flow Rate 2 Telemetry Type Remote Telemetry Telemetry Monitoring Continues Irregular Telemetry Rate (Approximate) 80-90 BPM Telemetry Heart Rate EKG QRS Interval 0.04 L Telemetry Strip Reading afib with PVC Lab Results Lab Results: Lab Results: Last 24 Hours 11/17/22 11/15/22 05:18 22:30 WBC 1.53 L* RBC 4.13 L Hgb 11.7 L Hct 36.1 L MCV 87.4 MCH 28.3 MCHC 32.4 RDW Coeff of Felix 13.6 Plt Count 59 L Neut % (Auto) 73.8 Lymph % (Auto) 19.0 [place] % (Auto) 5.2 Neutrophils % (Manual) 50.0 Lymphocytes % (Manual) 38.0 Monocytes % (Manual) 12.0 H Anisocytosis Not present VBG pH 7.44 H VBG pCO2 41 VBG pO2 36 VBG HCO3 27.8 H VBG O2 Saturation 71.6 Sodium 132.1 L Potassium 4.16 Chloride 104.6 Carbon Dioxide 24.9 Anion Gap 6.76 BUN 14.7 Creatinine 0.77 Estimated GFR (MDRD) 71.00 BUN/Creatinine Ratio 19.09 Glucose 83.5 Calcium 7.27 L Total Bilirubin 0.26 AST 124.9 H D ALT 35.1 H Alkaline Phosphatase 55.8 Total Protein 5.21 L Albumin 2.68 L Globulin 2.53 Albumin/Globulin Ratio 1.05 Additional Comments Additional Comments: I have independently reviewed and interpreted the labs/EKGs/imaging ordered during this hospital stay. I have reviewed outside records that are available in our EMR that pertain to medical stay including imaging/notes/labs from previous visits. Active Medications Active Medications: Medications Generic Name Dose Route Start Last Admin Trade Name Freq PRN Reason Stop Dose Admin Acetaminophen 650 mg 11/16/22 03:01 11/17/22 09:11 Acetaminophen 325 Mg Tablet PO 650 mg Q8H PRN Administration other Hydrocodone Bitart/Acetaminophen 1 tab 11/16/22 11:50 11/17/22 06:44 Hydrocodone Bit/Acetaminophen 5/325 Mg Tablet PO 1 tab BID PRN Administration Pain Apixaban 5 mg 11/16/22 18:00 11/17/22 05:40 Apixaban 5 Mg Tab PO 5 mg 0600,1800 ANTIONETTE Administration Carvedilol 12.5 mg 11/16/22 18:00 11/17/22 05:39 Carvedilol 12.5 Mg Tablet PO 12.5 mg 0600,1800 ANTIONETTE Administration Diazepam 2 mg 11/16/22 11:50 Diazepam 2 Mg Tablet PO BID PRN Dizziness CEFTRIAXONE/D5W 1 GM PREMIX 1 gm in 50 mls @ 75 mls/hr 11/16/22 09:00 11/17/22 09:06 Rocephin 1 Gm/50 Ml D5w IV 11/19/22 08:59 75 mls/hr DAILY ANTIONETTE Administration Doxycycline Hyclate 100 mg/ 100 mls @ 50 mls/hr 11/16/22 09:00 11/17/22 11:01 Sodium Chloride IV 11/19/22 08:59 50 mls/hr Q12HR ANTIONETTE Administration Sodium Chloride 1,000 mls @ 125 mls/hr 11/16/22 13:30 11/17/22 05:39 Sodium Chloride IV 125 mls/hr .Q8H ANTIONETTE Administration Losartan Potassium 50 mg 11/16/22 18:00 11/16/22 17:48 Losartan Potassium 25 Mg Tablet PO Not Given 1800 ANTIONETTE Metoclopramide HCl 10 mg 11/16/22 20:02 11/16/22 21:17 Metoclopramide Hcl 10 Mg Tablet PO 10 mg Q6H PRN Administration Abdominal Pain Ondansetron HCl 4 mg 11/16/22 02:35 Ondansetron Hcl/Pf 4 Mg/2 Ml Sdv IVP Q6HR PRN Nausea / Vomiting Plan Plan: 1. Sepsis, unknown origin - blood cultures preliminary negative, started on roce phin and doxycycline due to chest x-ray showing concern for pneumonia, CT scans all negative, urinalysis negative, continue current abx pending blood cultures 2. Pancytopenia with fever concern for cancer vs viral syndrome - mediastinal lymph nodes enlarged on CT, patient recalls today that she has had work-up regarding this lymph nodes previously and nothing was found 3. Hyponatremia - improving, continue NS@125mL/hr, telemetry 4. Diarrhea - x 5 days, C diff pending, stool culture prelim negative 5. Atrial Fibrillation - chronic, not in RVR, continue home eliquis and carvedilol 6. Hypothyroidism - chronic, continue home medications 7. Hypertension - chronic, continue home medications 1100 Transfer of care to Susy De La Torre as per family wishes. Hospitalist services signing off. Review Statement Review Statement: I have personally discussed and reviewed the patient's visit/currently labs/imaging/decision making with Dr. De La Torre, my supervising attending. Greater that 50 minutes spent with patient, 50% of the time spent with this patient was devoted to counseling and coordination of care.
[2022-11-17] MEDS ORDERED: LASIX IVP ONE ×2 (14:43→15:32)
[2022-11-17] MEDS ORDERED: DECADRON IM ONE (14:47)
[2022-11-17] MEDS ORDERED: ZOFRAN 4 MG/2 ML IVP PRN (14:53)
[2022-11-17] MEDS: PROTONIX IV IVP SCH ×2 (15:52→20:38)
[2022-11-17] MEDS: DUONEB NEB SCH (20:06)
[2022-11-18] MEDS: DUONEB NEB SCH ×3 (04:47→20:16)
[2022-11-18 05:09] LABS: HEMATOCRIT 35.4 % (37.0-47.0); HEMOGLOBIN 11.6 g/dl (12.0-16.0); MEAN CORPUSCULAR HEMOGLOBIN 28.4 pg (27.0-31.0); MEAN CORPUSCULAR HGB CONC 32.8 (31.8-35.4); MEAN CORPUSCULAR VOLUME 86.6 fl (81.0-99.0); PLATELET COUNT 57 10^3/uL (140-440); RDW COEFFICIENT OF VARIATION 13.7 % (11.6-14.8); RED BLOOD COUNT 4.09 10^6/ul (4.20-5.40)
[2022-11-18 05:12] LABS: HBsAgSCREEN Negative (Negative); HCV ANTIBODY Non Reactive (Non Reactive); HEP A AB, IgM Negative (Negative); HEP B CORE Ab, IgM Negative (Negative)
[2022-11-18] MEDS: ELIQUIS PO SCH ×2 (05:26→17:11)
[2022-11-18 05:28] LABS: ALANINE AMINOTRANSFERASE 53.8 U/L (0-35); ALBUMIN 2.88 g/dL (3.5-5.0); ALKALINE PHOSPHATASE 66.7 U/L (53-141); ASPARTATE AMINO TRANSFERASE 201.4 U/L (14-36); BILIRUBIN,TOTAL 0.22 mg/dL (0.2-1.3); BLOOD UREA NITROGEN 13.7 mg/dL (7-17); CALCIUM 7.57 mg/dL (8.4-10.2); CARBON DIOXIDE 25.2 mmol/L (22-30.0); CHLORIDE 103.7 mmol/L (98-107); CREATININE 0.79 mg/dL (0.60-1.30); GLUCOSE 116.5 mg/dL (74-106); POTASSIUM 4.18 mmol/L (3.5-5.1); SODIUM 133.7 mmol/L (134.5-145); TOTAL PROTEIN 5.44 g/dL (6.3-8.2)
[2022-11-18] MEDS: NORCO 5-325 PO PRN ×3 (05:52→22:53)
[2022-11-18 06:10] LABS: WHITE BLOOD COUNT 1.54 K/ul (4.6-10.2)
[2022-11-18 06:11] LABS: ANISOCYTOSIS NOT PRESENT (NOT PRESENT)
[2022-11-18] MEDS: PROTONIX IV IVP SCH ×2 (09:39→20:28)
[2022-11-18] MEDS: ROCEPHIN 1 GM/50 ML D5W 1 GM/50 ML BAG IV SCH (09:39)
--- NOTE | 2022-11-18 09:51 | PCM.PROG ---
Attending Provider: ATTENDING PROVIDER: Dr. JOSE ARTHUR MD This patient is seen with Cassi Parada, Nurse Practitioner. DATE OF SERVICE: 11/18/22 SUBJECTIVE: This 82 year old /WHITE F was hospitalized 11/16/22. Has been afebrile for over 24 hours. Liver enzymes are slightly more elevated today. Hepatitis panel is pending. Plt count about the same. Has not have any diarrhea for past 24 hours. Had to hold blood pressure medication, blood pressure is holding steady. Already has toast this morning. She received IV Lasix yesterday, wheezing has improved. No stool to collect for GI panel. REVIEW OF SYSTEMS: CONSTITUTIONAL: No night sweats. No fatigue, malaise, lethargy. No fever or chills. HEENT: Eyes: No visual changes. No eye pain. No eye discharge. ENT: No runny nose. No epistaxis. No sinus pain. No odynophagia. No congestion. RESPIRATORY: No cough, no congestion. No hemoptysis. No shortness of breath. CARDIOVASCULAR: No angina symptoms. No CHF symptoms. No atypical chest pain for CAD. No palpitations. No orthopnea.. GASTROINTESTINAL: No abdominal pain. No nausea or vomiting. No diarrhea or constipation. No hematemesis. No hematochezia. GENITOURINARY: No urgency. No frequency. No dysuria. No hematuria. No obstructive symptoms. No discharge. No pain. No significant abnormal bleeding. MUSCULOSKELETAL: No musculoskeletal pain; no joint swelling. NEUROLOGICAL: Awake, alert, oriented to time, place and person. No headache. No neck pain. No syncope. No seizures. No dizziness. PSYCHIATRIC: Not anxious. No depression. No suicidal thoughts. No homicidal thoughts. SKIN: No rash. No lesions. No wounds. ENDOCRINE: No unexplained weight loss. No weight gain. HEMATOLOGIC/LYMPHATIC: No anemia. No purpura. No petechiae. No prolonged or excessive bleeding. No palpable lymph nodes. PHYSICAL EXAMINATION: GENERAL: The patient is awake, alert and oriented, lying in bed in no distress. VITAL SIGNS: Temperature 96.7 F, Pulse 86, Respiratory Rate 16, BP 107/66, Pulse Ox 99% HEENT: Head normocephalic, atraumatic. Eyes: Extraocular muscles are intact. Pupils are equal, round and reactive to light and accommodation. Ears: No lesions. Nose appeared normal. Throat: No exudate or erythema. NECK: Supple. No JVD, no carotid bruit. No lymphadenopathy or thyromegaly. LUNGS: Diminished breath sounds. Clear to auscultation. Percussion note normal. Chest symmetrical. HEART: S1, S2, no S3. No murmurs. No cyanosis or clubbing. No ascites. Pulses: Dorsalis pedis and posterior tibial pulses +1 to +2 both sides. ABDOMEN: Soft. Mild epigastric tenderness. Bowel sounds active. No CVA tenderness. No mass felt. EXTREMITIES: No edema. Full range of motion of all extremities, equal. NEUROLOGIC: No focal deficit. Cranial nerves II through XII are grossly intact. No headache. No double vision. SKIN: Not dry. Intact. Turgor-normal. LYMPHATIC: No palpable lymph nodes/no lymphedema. MUSCULOSKELETAL: Normal joints with no swelling. Muscle tone is normal. LAB REVIEW: 11/18/22 04:54 11/18/22 04:54 11/18/22 04:54: WBC 1.54 L*, RBC 4.09 L, Hgb 11.6 L, Hct 35.4 L, MCV 86.6, MCH 28.4, MCHC 32.8, RDW Coeff of Felix 13.7, Plt Count 57 L, Neutrophils % (Manual) 64.0, Lymphocytes % (Manual) 28.0, Monocytes % (Manual) 8.0, Anisocytosis Not present, Sodium 133.7 L, Potassium 4.18, Chloride 103.7, Carbon Dioxide 25.2, Anion Gap 8.98, BUN 13.7, Creatinine 0.79, Estimated GFR (MDRD) 69.00, BUN/Creatinine Ratio 17.34, Glucose 116.5 H, Calcium 7.57 L, Total Bilirubin 0.22, AST 201.4 H D, ALT 53.8 H, Alkaline Phosphatase 66.7, Total Protein 5.44 L , Albumin 2.88 L, Globulin 2.56, Albumin/Globulin Ratio 1.12 11/17/22 05:35: Hepatitis A IgM Ab Negative, Hep Bs Antigen Negative, Hep B Core IgM Ab Negative, Hepatitis C Antibody Non reactive ASSESSMENT: Please see below. 1. Acute gastritis 2. Leukopenia 3. Thrombocytopenia 4. Elevated liver function 5. Hypotension 6. COPD PLAN: 1. Continue normal saline KVO 2. Will do right upper quadrant ultrasound tomorrow as she has already are this morning 3. Continue to hold Coreg and Losartan 4. Supportive care Plan and coordination of the patient's care discussed in the presence of Hotel Staff Member and nurse. SCRIBED BY: Shantel LEMUS scribed while in presence of service performed by Cassi Parada APRN on 11/18/22 ([id number])
[2022-11-18] MEDS: DOXY-100 100 MG in SODIUM CHLORIDE 100ML 100 ML IV SCH ×2 (10:35→20:30)
[2022-11-18 12:02] LABS: OCCULT BLOOD SAMPLE 1 POSITIVE (NEGATIVE); OCCULT BLOOD SAMPLE 2 NO SPECIMEN RECEIVED (NEGATIVE); OCCULT BLOOD SAMPLE 3 NO SPECIMEN RECEIVED (NEGATIVE)
--- NOTE | 2022-11-18 13:42 | PN ---
DATE OF SERVICE: 11/17/22 SUBJECTIVE: The patient was seen and examined with the Nurse Practitioner. The patient is going to be taken over by our service. The problems she started out with fever now has leukopenia and Thrombocytopenia. Still has some diarrhea. Appetite has been poor. More or less sleepy. The family is present in the room. The possibility of lymphoma in the medial sternal area exists but still onset of all this is so sudden. Previous CBC with differential were practically normal and now she has leukopenia, thrombocytopenia. Liver enzymes have started going up. Viral in etiology. The patient is DNR. TIME SPENT: More than 35 minutes. Plan and coordination of the patient's care discussed in the presence of nurse. EMILY
--- NOTE | 2022-11-18 13:48 | PN ---
DATE OF SERVICE: 11/17/22 SUBJECTIVE: 82 year old white female hospitalized with possibility of pneumonia and medial sternal lymphadenopathy with fever, diarrhea. The patient's condition has improved clinically. She has been able to eat now. She is alert and wants to go home. The patient is going to be getting an ultrasound of the liver. Enzymes are abnormal, four times the normal limit. The patient is already on Protonix. Panel pending. Lasix was given yesterday along with steroids. Her breathing is much better with much less wheezing and good air entry. Condition is improving. Viral pneumonia could be the cause of all this problems. Condition is otherwise stable. TIME SPENT: More than 35 minutes. Plan and coordination of the patient's care discussed in the presence of nurse. EMILY
[2022-11-18] MEDS: SODIUM CHLORIDE 1,000 ML IV SCH ×2 (16:22→18:17)
[2022-11-19] MEDS: DUONEB NEB SCH ×3 (04:30→20:40)
[2022-11-19] MEDS: ELIQUIS PO SCH ×2 (05:38→17:22)
[2022-11-19 07:15] LABS: BASOPHILS % (AUTO) 0.5 % (0.0-3.0); HEMATOCRIT 32.3 % (37.0-47.0); HEMOGLOBIN 10.9 g/dl (12.0-16.0); IMMATURE GRANULOCYTE % (AUTO) 1.4 % (0.0-5.0); LYMPHOCYTES # (AUTO) 0.7 K/uL (0.60-3.4); MEAN CORPUSCULAR HEMOGLOBIN 28.1 pg (27.0-31.0); MEAN CORPUSCULAR HGB CONC 33.7 (31.8-35.4); MEAN CORPUSCULAR VOLUME 83.2 fl (81.0-99.0); MONOCYTES # (AUTO) 0.2 K/uL (0.4-2.0); MONOCYTES % (AUTO) 8.1 (0-10); NEUTROPHILS # (AUTO) 1.2 K/ul (2.0-6.9); PLATELET COUNT 70 10^3/uL (140-440); RDW COEFFICIENT OF VARIATION 13.8 % (11.6-14.8); RED BLOOD COUNT 3.88 10^6/ul (4.20-5.40)
[2022-11-19 07:23] LABS: ALANINE AMINOTRANSFERASE 70.2 U/L (0-35); ALBUMIN 2.95 g/dL (3.5-5.0); ASPARTATE AMINO TRANSFERASE 256.2 U/L (14-36); BILIRUBIN,TOTAL 0.31 mg/dL (0.2-1.3); BLOOD UREA NITROGEN 12.4 mg/dL (7-17); CALCIUM 7.9 mg/dL (8.4-10.2); CARBON DIOXIDE 29.3 mmol/L (22-30.0); CHLORIDE 104.4 mmol/L (98-107); CREATININE 0.78 mg/dL (0.60-1.30); GLUCOSE 97.4 mg/dL (74-106); POTASSIUM 4.14 mmol/L (3.5-5.1); SODIUM 135.2 mmol/L (134.5-145); TOTAL PROTEIN 5.63 g/dL (6.3-8.2)
[2022-11-19] MEDS: PROTONIX IV IVP SCH ×2 (08:07→20:57)
[2022-11-19] MEDS: NORCO 5-325 PO PRN ×3 (08:07→23:30)
[2022-11-19] MEDS: ROCEPHIN 1 GM/50 ML D5W 1 GM/50 ML BAG IV SCH (08:07)
--- NOTE | 2022-11-19 09:09 | US ---
EXAM: ULTRASOUND OF THE RIGHT UPPER QUADRANT (LIMITED ABDOMEN) HISTORY: Gallstones, elevated LFTs TECHNIQUE: Sonography of the right upper quadrant of the abdomen was performed. Color Doppler imagin g and spectral Doppler imaging of the portal vein was also performed. Images were obtained and store d in a permanent archive. COMPARISON: 11/15/2022, CT scan FINDINGS: Pancreas: Normal sonographic appearance of the head and body. Tail is partially obscured. Liver: The liver measures 10.3cm. No focal hepatic lesion. Main portal vein: Normal hepatopetal flow. Gallbladder: Cholelithiasis. No gallbladder wall thickening. Common bile duct measures 8.4 mm. Aorta: Visualized portion without aneurysmal dilatation. IVC: Patent on color doppler. No abnormality on limited oneill scale image. Other: There is a small amount of perihepatic ascites. The right kidney measures 8.5 x 4.1 x 4.0 cm. No stones or hydronephrosis. IMPRESSION: 1. Cholelithiasis without sonographic evidence of cholecystitis. Small amount of perihepatic free f luid
[2022-11-19] MEDS: DOXY-100 100 MG in SODIUM CHLORIDE 100ML 100 ML IV SCH ×2 (09:26→20:57)
[2022-11-19] MEDS: VALIUM PO PRN (15:24)
[2022-11-20] MEDS: TYLENOL PO PRN (03:33)
[2022-11-20] MEDS: DUONEB NEB SCH ×3 (04:34→19:21)
[2022-11-20 05:30] LABS: BASOPHILS % (AUTO) 0.5 % (0.0-3.0); HEMATOCRIT 31.5 % (37.0-47.0); HEMOGLOBIN 10.6 g/dl (12.0-16.0); IMMATURE GRANULOCYTE % (AUTO) 1.4 % (0.0-5.0); LYMPHOCYTES # (AUTO) 0.8 K/uL (0.60-3.4); LYMPHOCYTES % (AUTO) 37.7 (10.0-50.0); MEAN CORPUSCULAR HGB CONC 33.7 (31.8-35.4); MEAN CORPUSCULAR VOLUME 83.1 fl (81.0-99.0); MONOCYTES # (AUTO) 0.2 K/uL (0.4-2.0); MONOCYTES % (AUTO) 11.1 (0-10); NEUTROPHILS % (AUTO) 49.3 % (42.2-75.2); PLATELET COUNT 70 10^3/uL (140-440); RDW COEFFICIENT OF VARIATION 13.9 % (11.6-14.8); RED BLOOD COUNT 3.79 10^6/ul (4.20-5.40); WHITE BLOOD COUNT 2.07 K/ul (4.6-10.2)
[2022-11-20 05:54] LABS: ALANINE AMINOTRANSFERASE 87.3 U/L (0-35); ALBUMIN 2.92 g/dL (3.5-5.0); ALKALINE PHOSPHATASE 73.8 U/L (53-141); ASPARTATE AMINO TRANSFERASE 285.6 U/L (14-36); BILIRUBIN,TOTAL 0.34 mg/dL (0.2-1.3); BLOOD UREA NITROGEN 11.8 mg/dL (7-17); CALCIUM 7.9 mg/dL (8.4-10.2); CARBON DIOXIDE 28.9 mmol/L (22-30.0); CHLORIDE 104.6 mmol/L (98-107); CREATININE 0.72 mg/dL (0.60-1.30); GLUCOSE 81.1 mg/dL (74-106); POTASSIUM 3.92 mmol/L (3.5-5.1); SODIUM 136.4 mmol/L (134.5-145); TOTAL PROTEIN 5.66 g/dL (6.3-8.2)
[2022-11-20] MEDS: ELIQUIS PO SCH ×2 (06:15→17:20)
[2022-11-20] MEDS: NORCO 5-325 PO PRN ×2 (06:49→21:20)
[2022-11-20] MEDS: SODIUM CHLORIDE 1,000 ML IV SCH (07:50)
[2022-11-20] MEDS: PROTONIX IV IVP SCH ×2 (08:59→20:25)
[2022-11-20] MEDS: COREG PO SCH ×2 (08:59→17:15)
[2022-11-20] MEDS: LANOXIN PO SCH (08:59)
[2022-11-20 10:13] LABS: SERUM OSMOLALITY 267 mOsmol/kg (280-301)
--- NOTE | 2022-11-20 10:22 | PCM.PROG ---
Attending Provider: ATTENDING PROVIDER: Dr. JOSE ARTHUR MD This patient is seen with Cassi Parada, Nurse Practitioner. DATE OF SERVICE: 11/20/22 SUBJECTIVE: This 82 year old /WHITE F was hospitalized 11/16/22. Blood pressure is still been moderately low. Coreg and Losartan have been on hold. Has been going into RVR. Plt count steady at 70,000. WBC steady. The patient is wanting IV fluids and antibiotics discontinued. REVIEW OF SYSTEMS: CONSTITUTIONAL: No night sweats. No fatigue, malaise, lethargy. No fever or chills. Weakness. HEENT: Eyes: No visual changes. No eye pain. No eye discharge. ENT: No runny nose. No epistaxis. No sinus pain. No odynophagia. No congestion. RESPIRATORY: No cough, no congestion. No hemoptysis. No shortness of breath. CARDIOVASCULAR: No angina symptoms. No CHF symptoms. No atypical chest pain for CAD. No palpitations. No orthopnea.. GASTROINTESTINAL: No abdominal pain. No nausea or vomiting. No diarrhea or constipation. No hematemesis. No hematochezia. GENITOURINARY: No urgency. No frequency. No dysuria. No hematuria. No obstructive symptoms. No discharge. No pain. No significant abnormal bleeding. MUSCULOSKELETAL: No musculoskeletal pain; no joint swelling. NEUROLOGICAL: Awake, alert, oriented to time, place and person. No headache. No neck pain. No syncope. No seizures. No dizziness. PSYCHIATRIC: Not anxious. No depression. No suicidal thoughts. No homicidal thoughts. SKIN: No rash. No lesions. No wounds. ENDOCRINE: No unexplained weight loss. No weight gain. HEMATOLOGIC/LYMPHATIC: Anemia. No purpura. No petechiae. No prolonged or excessive bleeding. No palpable lymph nodes. PHYSICAL EXAMINATION: GENERAL: The patient is awake, alert and oriented, lying in bed in no distress. VITAL SIGNS: Temperature 96.4 F, Pulse 116, Respiratory Rate 18, BP 107/79, Pulse Ox 95% HEENT: Head normocephalic, atraumatic. Eyes: Extraocular muscles are intact. Pupils are equal, round and reactive to light and accommodation. Ears: No lesions. Nose appeared normal. Throat: No exudate or erythema. NECK: Supple. No JVD, no carotid bruit. No lymphadenopathy or thyromegaly. LUNGS: Diminished breath sounds. Clear to auscultation. Percussion note normal. Chest symmetrical. HEART: S1, S2, no S3. No murmurs. Irregular heart rate. No cyanosis or clubbing. No ascites. Pulses: Dorsalis pedis and posterior tibial pulses +1 to +2 both sides. ABDOMEN: Soft. Non-tender. Bowel sounds active. No CVA tenderness. No mass felt. EXTREMITIES: No edema. Full range of motion of all extremities, equal. NEUROLOGIC: No focal deficit. Cranial nerves II through XII are grossly intact. No headache. No double vision. SKIN: Not dry. Intact. Turgor-normal. LYMPHATIC: No palpable lymph nodes/no lymphedema. MUSCULOSKELETAL: Normal joints with no swelling. Muscle tone is normal. LAB REVIEW: 11/20/22 05:10 11/20/22 05:10 11/20/22 05:10: WBC 2.07 L, RBC 3.79 L, Hgb 10.6 L, Hct 31.5 L, MCV 83.1, MCH 28.0, MCHC 33.7, RDW Coeff of Felix 13.9, Plt Count 70 L, Immature Gran % (Auto) 1.4, Neut % (Auto) 49.3, Lymph % (Auto) 37.7, [place] % (Auto) 11.1 H, Eos % (Auto) 0.0, Baso % (Auto) 0.5, Neut # (Auto) 1.0 L, Lymph # (Auto) 0.8, [place] # (Auto) 0.2 L, Eos # (Auto) 0.0, Baso # (Auto) 0.0, Immature Gran # (Auto) 0.0, Sodium 136.4, Potassium 3.92, Chloride 104.6, Carbon Dioxide 28.9, Anion Gap 6.82, BUN 11.8, Creatinine 0.72, Estimated GFR (MDRD) 77.00, BUN/Creatinine Ratio 16.38, Glucose 81.1, Calcium 7.90 L, Total Bilirubin 0.34, AST 285.6 H D, ALT 87.3 H, Alkaline Phosphatase 73.8, Total Protein 5.66 L, Albumin 2.92 L, Globulin 2.74, Albumin/Globulin Ratio 1.06 ASSESSMENT: Please see below. 1. Acute thrombocytopenia 2. Elevated liver function 3. Atrial fibrillation with RVR 4. Acute gastritis 5. Hypotension PLAN: 1. Discontinue IV fluids 2. Start Coreg 3.125mg PO 3. Digoxin 0.125mg PO daily 4. Hepatitis panel was negative. Plan and coordination of the patient's care discussed in the presence of Cable Television Installer and nurse. SCRIBED BY: Chilango LEMUSist scribed while in presence of service performed by Cassi Parada APRN on 11/20/22 ([id number])
--- NOTE | 2022-11-20 11:55 | PN ---
DATE OF SERVICE: 11/19/22 SUBJECTIVE: 82 year old white female hospitalized with history of having fever and worsening of her mental status and had possibility of pneumonitis or viral infection. The patient's condition has improved. She is eating much better and the family is happy with her progress. The patient is alert and tired. REVIEW OF SYSTEMS: CONSTITUTIONAL: No night sweats. No fatigue, malaise, lethargy. No fever or chills. HEENT: Eyes: No visual changes. No eye pain. No eye discharge. ENT: No runny nose. No epistaxis. No sinus pain. No sore throat. No odynophagia. No congestion. RESPIRATORY: No cough, no congestion. No hemoptysis. No shortness of breath. CARDIOVASCULAR: No angina symptoms. No CHF symptoms. No atypical chest pain for CAD. No palpitations. No PND. No orthopnea. GASTROINTESTINAL: No abdominal pain. No nausea or vomiting. No diarrhea or constipation. No hematemesis. No hematochezia. GENITOURINARY: No urgency. No frequency. No dysuria. No hematuria. No obstructive symptoms. No discharge. No pain. No significant abnormal bleeding. MUSCULOSKELETAL: No musculoskeletal pain; no joint swelling. NEUROLOGICAL: No headache. No neck pain. No syncope. No seizures. No dizziness. PSYCHIATRIC: Not anxious. No depression. No suicidal thoughts. No homicidal thoughts. SKIN: No rash. No lesions. No wounds. ENDOCRINE: No unexplained weight loss. No weight gain. HEMATOLOGIC/LYMPHATIC: No anemia. No purpura. No petechiae. No prolonged or excessive bleeding. No palpable lymph nodes. PHYSICAL EXAMINATION: VITAL SIGNS: Temperature 97.9, pulse 100, respiratory rate 18, blood pressure 96/57 and pulse ox 97%. HEENT: Head normocephalic, atraumatic. Eyes: Extraocular muscles are intact. Pupils are equal, round and reactive to light and accommodation. Ears: No lesions. Nose appeared normal. Throat: No exudate or erythema. NECK: Supple. No JVD, no carotid bruit. No lymphadenopathy or thyromegaly. LUNGS: Decreased breath sounds but good air entry. Clear to auscultation. Percussion note normal. Chest symmetrical. HEART: S1, S2, no S3. No murmurs. No cyanosis or clubbing. No ascites. Pulses: Dorsalis pedis and posterior tibial pulses +1 to +2 bilaterally. ABDOMEN: Soft. Nontender. Bowel sounds active. No CVA tenderness. No mass felt. EXTREMITIES: No edema. Full range of motion of all extremities, equal. NEUROLOGIC: No focal deficit. Cranial nerves II through XII are grossly intact. No headache. No double vision. SKIN: Not dry. Intact. Turgor - normal. LYMPHATIC: No palpable lymph nodes/no lymphedema. MUSCULOSKELETAL: Normal joints with no swelling. Muscle tone is normal. LABS: The patient has improvement in the plt count to 70,000 and the WBC is 2,500, creatinine 0.7, BUN 13. AST and ALT still elevated but better than yesterday, Yesterday was 201/53 AST/ALT respectively. Ultrasound of the liver done which showed cholelithiasis without cholecystitis. ASSESSMENT: 1. Viral syndrome with combination of the liver and leukopenia. 2. Thrombocytopenia PLAN: 1. Continue to treat the patient with antibiotics, steroids and fluids. CONDITION: Improving. TIME SPENT: More than 35 minutes. Plan and coordination of the patient's care discussed in the presence of nurse. EMILY
--- NOTE | 2022-11-20 13:50 | RS.PTINEVL ---
Subjective Patient information Date of Evaluation: 11/20/22 Date of Arrival on Unit: 11/15/22 Admitted From:: Home Diagnosis: leukopenia, thrombocytopenia, difficulty walking, impaired balance. Usual Living Arrangement: With Others (lives with dtr and son) Home Environment: House and Level/No stairs (no stairs in the back which is the entrance she uses. ) Medical History: Hypertension, COPD and Arthritis Medical History Comments:: hypothyroid, DJD, Afib, LATEX ALLERGY?: No Medications: see chart Subjective Information/ Patient Comments:: pt states that she feels weak and a little light headed with standing. States after standing a min or so the light headedness decreased. pt states that she is active at home without AD. Level of function Prior to this admission, the patient could do the following:: Independent Selfcare, Independent ADL's, Independent Ambulation, Perform Accountant Helper/Cooking and Participated in Social Activities Outside home Current Level of Function: Partially Dependent Current Equipment Used at Home: none Interventions Objective Patient Orientation: Person, Place and Situation Current Interventions: Telemetry Observation: pt with increased thoracic kyphosis, rounded shlds. Range of Motion ROM Right Upper Extremity AROM: WFL's Left Upper Extremity AROM: WFL's Right Lower Extremity AROM: WFL's Left Lower Extremity AROM: WFL's Muscle Strength Muscle Strength Right Upper Extremity: Mild Weakness (shld flex 4-/5, elbow flex/ext 4/5 ) Left Upper Extremity: Mild Weakness (shld flex 4-/5, elbow flex/ext 4/5 ) Right Lower Extremity: Mild Weakness (hip flex 4-/5, knee flex/ext 4/5, ankle DF/PF 4/5 ) Left Lower Extremity: Mild Weakness (hip flex 4-/5, knee flex/ext 4/5, ankle DF/PF 4/5 ) Sensation Sensation Right Upper Extremity: Intact/Normal Left Upper Extremity: Intact/Normal Right Lower Extremity: Intact/Normal Left Lower Extremity: Intact/Normal Palpation Palpation Findings: None/Normal Balance Sitting Balance and Reactions Static Sitting Balance: Fair (fair+) Dynamic Sitting Balance: Fair Standing Balance and Reactions Static Standing Balance: Poor Dynamic Standing Balance: Poor Standing Equilibrium Reactions: Delayed Left and Delayed Right Standing Protective Reactions: Delayed Left and Delayed Right Functional Mobility Bed Mobility Rolling R/L: CGA Supine to Sit: CGA Sit to Supine: CGA Transfers Sit to Stand: CGA and Min Assist Stand to Sit: CGA and Min Assist Safety Awareness Safety Awareness: Fair MARE INDEX SCORE: n/a Ambulation Ambulation Assistive Device Used: Gait belt Orthotic/Prosthetic Device: No Distance: 80ft Assistance needed with Ambulation: CGA and Min Assist Quality of Ambulation: increased lat sway Gait Deviations: Forward posture, Short stride and Deviates from path Ambulation Comments: Feel pt will have improved gait safety with use of rwx. Factors Affecting Ambulation: Decreased Balance, Weakness, Decreased Coordination, Decreased Safety and Limited Endurance Treatment time Time with patient Length of Evaluation: 24 Total treatment time: 29 Patient Education Education Patient Education: Activity Modification and Education of Plan of Care Teaching Recipient: Patient Teaching Methods: Discussion Assessment Assessment Problem List:: Decreased level of function, Requires training/education, Decreased safety/Risk of falls and Weakness Rehab Potential: Good Further Therapy Indicated?: Yes Candidate for Swing Bed for Therapy Services?: Feel pt may be a candidate for swing bed for therapy for strengthening, balance and gait training. Evaluation Complexity: HISTORY: Medium, EXAM OF BODY SYSTEMS: Medium, CLINICAL PRESENTATION: Medium and CLINICAL DECISION MAKING: Medium Patient's Goal(s): to return home as soon as possible Short Term Goals GOAL #1: pt demonstrate rolling and scooting in bed independently. Goal to be met by: 11/24/22 GOAL #2: Transfer sup to/from sit SBA Goal to be met by: 11/24/22 GOAL #3: Transfer sit to/from stand SBA to I Goal to be met by: 11/24/22 GOAL #4: pt amb with rwx 140ft with CGA Goal to be met by: 11/24/22 GOAL #5: Improve BLE strength 4+ to 5/5 Goal to be met by: 11/24/22 [facility] Goals GOAL #1: pt transfer sup to/from sit to/from stand SBA to independent. Goal to be met by: 11/26/22 GOAL #2: pt amb with rwx functional household distances with SBA to independent. Goal to be met by: 11/26/22 GOAL #3: Improve dyn stand balance fair Goal to be met by: 11/26/22 Plan Plan of Care: Therapeutic EX, Neuromuscular Re-Educ and Therapeutic Activity Other:: gait training Frequency of Treatment: 1-2 X day, as tolerated Duration of Treatment: 6 days Anticipated Discharge Destination: Home Treatment Diagnosis (ICD 10 Codes): impaired balance R 26.81 gait difficulty R 26.2 weakness M62.81 Has the Physician been added for Co-signature?: Yes
[2022-11-20] MEDS: VALIUM PO PRN (15:25)
[2022-11-21] MEDS: TYLENOL PO PRN (01:13)
[2022-11-21] MEDS: DUONEB NEB SCH ×3 (04:40→19:45)
[2022-11-21] MEDS: ELIQUIS PO SCH ×2 (05:08→17:53)
[2022-11-21 05:33] LABS: BASOPHILS % (AUTO) 0.5 % (0.0-3.0); EOSINOPHILS % (AUTO) 1.1 % (0.0-7.0); HEMATOCRIT 31.4 % (37.0-47.0); HEMOGLOBIN 10.6 g/dl (12.0-16.0); IMMATURE GRANULOCYTE % (AUTO) 1.1 % (0.0-5.0); LYMPHOCYTES # (AUTO) 0.8 K/uL (0.60-3.4); LYMPHOCYTES % (AUTO) 42.9 (10.0-50.0); MEAN CORPUSCULAR HGB CONC 33.8 (31.8-35.4); MEAN CORPUSCULAR VOLUME 83.1 fl (81.0-99.0); MONOCYTES # (AUTO) 0.2 K/uL (0.4-2.0); MONOCYTES % (AUTO) 12.2 (0-10); NEUTROPHILS # (AUTO) 0.8 K/ul (2.0-6.9); NEUTROPHILS % (AUTO) 42.2 % (42.2-75.2); PLATELET COUNT 75 10^3/uL (140-440); RDW COEFFICIENT OF VARIATION 13.9 % (11.6-14.8); RED BLOOD COUNT 3.78 10^6/ul (4.20-5.40)
[2022-11-21 05:39] LABS: ALANINE AMINOTRANSFERASE 97.5 U/L (0-35); ALBUMIN 2.96 g/dL (3.5-5.0); ALKALINE PHOSPHATASE 80.2 U/L (53-141); ASPARTATE AMINO TRANSFERASE 251.3 U/L (14-36); BILIRUBIN,TOTAL 0.49 mg/dL (0.2-1.3); BLOOD UREA NITROGEN 10.7 mg/dL (7-17); CALCIUM 8.24 mg/dL (8.4-10.2); CARBON DIOXIDE 33.3 mmol/L (22-30.0); CREATININE 0.69 mg/dL (0.60-1.30); GLUCOSE 75.4 mg/dL (74-106); POTASSIUM 3.52 mmol/L (3.5-5.1); SODIUM 136.4 mmol/L (134.5-145); TOTAL PROTEIN 5.85 g/dL (6.3-8.2)
[2022-11-21 06:17] LABS: WHITE BLOOD COUNT 1.89 K/ul (4.6-10.2)
[2022-11-21] MEDS: LANOXIN PO SCH (08:11)
[2022-11-21] MEDS: COREG PO SCH ×2 (08:11→17:53)
[2022-11-21] MEDS: NORCO 5-325 PO PRN ×2 (08:11→15:31)
[2022-11-21] MEDS: PROTONIX IV IVP SCH (08:13)
[2022-11-21 08:14] LABS: OSMOLALITY,URINE 350 mOsmol/kg (.)
[2022-11-21] MEDS: PROTONIX PO SCH ×2 (08:21→17:53)
--- NOTE | 2022-11-21 13:57 | RS.OTINEVL ---
Subjective Patient information Date of Evaluation: 11/21/22 Date of Arrival on Unit: 11/15/22 Admitted From:: Home Diagnosis: dehydrated, thrombocytopenia PRECAUTIONS: Weakness, fall precautions, Usual Living Arrangement: With Others Living Arrangement Comments: Pt's daughter lives with her. Home Environment: House and Level/No stairs (no stairs in the back which is the entrance she uses. ) Medical History: Hypertension, COPD and Arthritis Medical History Comments:: hypothyroid, DJD, Afib, LATEX ALLERGY?: No Medications: see chart Subjective Information/ Patient Comments:: Pt reports she cooks some. Level of function Prior to this admission, the patient could do the following:: Independent Selfcare, Independent ADL's, Independent Ambulation, Perform Ash Handler/Cooking and Participated in Social Activities Outside home Abilities prior to this admission: Pt reports she was walking without any assistive device and she was completing her ADLS without assistance. Current Level of Function: Partially Dependent Current Equipment Used at Home: none Interventions Objective Patient Orientation: Person, Place and Situation Current Interventions: IV's Observation: Pt is SUP to sit EOB. Pt CGA with transfers from the EOB to the chair. Pt able to use a RW with verbal cues. Interventions ROM Right Upper Extremity AROM: Slight limitation Left Upper Extremity AROM: Slight limitation Strength Right Upper Extremity: Mild Weakness Left Upper Extremity: Mild Weakness Sensation Right Upper Extremity: Intact/Normal Left Upper Extremity: Intact/Normal Balance Sitting Balance Static Sitting Balance: Good Dynamic Sitting Balance: Good Standing Balance Static Standing Balance: Fair Dynamic Standing Balance: Fair ADL Skills Self Feeding Self Feeding: Independent Grooming Grooming: CGA Grooming Set-up: Standing Bathing Bathing UE: Supervision Bathing LE: Supervision Bathing Set-up: Shower Dressing Dressing UE: Independent Dressing LE: Supervision Toilet Management Toilet Hygiene: Independent Toilet Clothing Management: Independent Functional Mobility Bed Mobility Rolling R/L: Independent Scooting: Independent Supine to Sit: Independent Transfers Sit to Stand: CGA Stand to Sit: CGA Stand Pivot Transfers: CGA Ambulation Weight Bearing Status: FWB Assistive Device Used: Rolling Walker Assistance needed with Ambulation: CGA Safety Awareness Safety Awareness: Good MARE INDEX SCORE: . Additional Treatment Performed Time with patient Length of Evaluation: 20 Total treatment time: 20 Assessment Problem List:: Decreased level of function and Weakness Rehab Potential: Good Further Therapy Indicated?: Yes Evaluation Complexity: HISTORY: Medium, EXAM OF BODY SYSTEMS: Medium and CLINICAL DECISION MAKING: Medium Patient's Goal(s): To get better and be able to go home. Short Term Goals Goals GOAL 1: Pt to be (I) with toilet transfers. Goal to be met by: 11/25/22 GOAL 2: Pt to be I with showering. Goal to be met by: 11/25/22 GOAL 3: Pt to be CGA for dyn. std. bal. to be Good-. Goal to be met by: 11/25/22 GOAL 4: Pt to be able to tolerate 10 minutes of standing activity. Goal to be met by: 11/25/22 It Service Technician Goals GOAL 1: Pt to be (I) with ADLS. Goal to be met by: 11/26/22 GOAL 2: Pt to increase activity tolerance to 20 minutes of standing activitiy. Goal to be met by: 11/26/22 GOAL 3: Pt to increase BUE strength to 4+/5. Plan Plan of Care: Therapeutic EX, Therapeutic Activity and Self-Care/Home Management Frequency of Treatment: 1-2 X day, as tolerated Duration of Treatment: 1 Week Anticipated Discharge Destination: Assisted Living Facility Treatment Diagnosis (ICD 10 Codes): Weakness R53.1, Has the Physician been added for Co-signature?: Yes
[2022-11-21] MEDS ORDERED: ZOFRAN 4 MG/2 ML IM ONE (15:24)
[2022-11-21] MEDS ORDERED: DESYREL PO SCH (21:00)
[2022-11-22] MEDS: NORCO 5-325 PO PRN ×2 (00:27→09:11)
[2022-11-22] MEDS: DUONEB NEB SCH (05:13)
[2022-11-22 05:41] VITALS: BP 126/64; TEMP 97.6
[2022-11-22] MEDS: PROTONIX PO SCH (05:42)
[2022-11-22] MEDS: ELIQUIS PO SCH (05:42)
[2022-11-22 05:50] LABS: BASOPHILS % (AUTO) 1.3 % (0.0-3.0); EOSINOPHILS % (AUTO) 1.9 % (0.0-7.0); HEMATOCRIT 31.9 % (37.0-47.0); HEMOGLOBIN 10.6 g/dl (12.0-16.0); IMMATURE GRANULOCYTE % (AUTO) 1.3 % (0.0-5.0); LYMPHOCYTES # (AUTO) 0.8 K/uL (0.60-3.4); LYMPHOCYTES % (AUTO) 49.4 (10.0-50.0); MEAN CORPUSCULAR HEMOGLOBIN 27.8 pg (27.0-31.0); MEAN CORPUSCULAR HGB CONC 33.2 (31.8-35.4); MEAN CORPUSCULAR VOLUME 83.7 fl (81.0-99.0); MONOCYTES # (AUTO) 0.2 K/uL (0.4-2.0); MONOCYTES % (AUTO) 13.8 (0-10); NEUTROPHILS # (AUTO) 0.5 K/ul (2.0-6.9); NEUTROPHILS % (AUTO) 32.3 % (42.2-75.2); PLATELET COUNT 99 10^3/uL (140-440); RDW COEFFICIENT OF VARIATION 13.9 % (11.6-14.8); RED BLOOD COUNT 3.81 10^6/ul (4.20-5.40)
[2022-11-22 06:03] LABS: ALANINE AMINOTRANSFERASE 93.2 U/L (0-35); ALBUMIN 3.04 g/dL (3.5-5.0); ALKALINE PHOSPHATASE 74.4 U/L (53-141); ASPARTATE AMINO TRANSFERASE 174.3 U/L (14-36); BILIRUBIN,TOTAL 0.54 mg/dL (0.2-1.3); BLOOD UREA NITROGEN 9.6 mg/dL (7-17); CALCIUM 8.47 mg/dL (8.4-10.2); CARBON DIOXIDE 32.2 mmol/L (22-30.0); CHLORIDE 102.7 mmol/L (98-107); CREATININE 0.77 mg/dL (0.60-1.30); GLUCOSE 68.6 mg/dL (74-106); POTASSIUM 3.6 mmol/L (3.5-5.1); SODIUM 138.3 mmol/L (134.5-145); TOTAL PROTEIN 6.13 g/dL (6.3-8.2)
[2022-11-22] MEDS: LANOXIN PO SCH (08:58)
[2022-11-22] MEDS: COREG PO SCH (08:58)
[2022-11-22 10:50] VITALS: RESP 18
--- NOTE | 2022-11-24 09:19 | PN ---
DATE OF SERVICE: 11/20/22 SUBJECTIVE: The patient was seen and examined with the Nurse Practitioner. The patient's condition seems to have improved. She is eating better. Liver enzymes had gone up. Ultrasound of the liver is practically negative. The patient's WBC is over 2,000 with plt count of 70,000, Slowly improving. TIME SPENT: More than 35 minutes. Plan and coordination of the patient's care discussed in the presence of nurse. EMILY
--- NOTE | 2022-11-24 16:11 | PN ---
DATE OF SERVICE: 11/21/22 SUBJECTIVE: 82 year old white female hospitalized with pneumonia and viral infection. Patient's condition steadily has improved. She wants to go home. REVIEW OF SYSTEMS: CONSTITUTIONAL: Patient is still weak. Appetite seems to be improving but not as well as it should be. HEENT: Eyes: No visual changes. No eye pain. No eye discharge. ENT: No runny nose. No epistaxis. No sinus pain. No sore throat. No odynophagia. No congestion. RESPIRATORY: No cough, no congestion. No hemoptysis. No shortness of breath. CARDIOVASCULAR: No chest pain. No palpitations. No PND. No orthopnea. GASTROINTESTINAL: No abdominal pain. No nausea or vomiting. No diarrhea or constipation. No hematemesis. No hematochezia. GENITOURINARY: No urgency. No frequency. No dysuria. No hematuria. No obstructive symptoms. No discharge. No pain. No significant abnormal bleeding. MUSCULOSKELETAL: No musculoskeletal pain; no joint swelling. NEUROLOGICAL: No headache. No neck pain. No syncope. No seizures. No dizziness. PSYCHIATRIC: Not anxious. No depression. No suicidal thoughts. No homicidal thoughts. SKIN: No rash. No lesions. No wounds. ENDOCRINE: No unexplained weight loss. No weight gain. HEMATOLOGIC/LYMPHATIC: No anemia. No purpura. No petechiae. No prolonged or excessive bleeding. No palpable lymph nodes. PHYSICAL EXAMINATION: GENERAL: The patient is in no distress. VITAL SIGNS: Temperature 97.6, pulse 80, respiratory rate 16, blood pressure 110/60, pulse ox 99%. HEENT: Head normocephalic, atraumatic. Eyes: Extraocular muscles are intact. Pupils are equal, round and reactive to light and accommodation. Ears: No lesions. Nose appeared normal. Throat: No exudate or erythema. NECK: Supple. LUNGS: Decreased breath sounds but clear. HEART: S1, S2, no S3. ABDOMEN: Soft. Bowel sounds active. EXTREMITIES: No edema. Full range of motion of all extremities, equal. NEUROLOGIC: No focal deficit. Cranial nerves II through XII are grossly intact. No headache. No double vision. SKIN: Not dry. Intact. Turgor - normal. LYMPHATIC: No palpable lymph nodes/no lymphedema. MUSCULOSKELETAL: Normal joints with no swelling. Muscle tone is normal. LABS: Hemoglobin 10.6, hematocrit 31, WBC 1,800, creatinine 0.6, BUN 10, potassium 3.5. AST is better than yesterday and ALT is also more or less steady. ASSESSMENT: Viral infection with leukopenia and thrombocytopenia. PLAN: Will discontinue IV fluids and continue telemetry. Patient could be recovering from severe viral infection and other possibilities are lymphoma with mediastinal lymphadenopathy cannot be ruled out. Patient's family and the patient both were told will need further investigation or further consultation. No jaundice noted. Code Status: DNR TIME SPENT: More than 35 minutes. Plan and coordination of the patient's care discussed in the presence of nurse. EMILY
--- NOTE | 2022-11-24 16:26 | PN ---
DATE OF SERVICE: 11/22/22 SUBJECTIVE: 82 year old white female hospitalized with pneumonitis with viral infection. Patient's condition steadily has improved to the point where the family wants her to be taken home. Patient wants to go home. If I don't do that the patient's family says they will sign the patient out against medical advice. In any case. REVIEW OF SYSTEMS: CONSTITUTIONAL: Appetite is still not up to par. HEENT: Eyes: No visual changes. No eye pain. No eye discharge. ENT: No runny nose. No epistaxis. No sinus pain. No sore throat. No odynophagia. No congestion. RESPIRATORY: No cough, no congestion. No hemoptysis. No shortness of breath. CARDIOVASCULAR: No chest pain. No palpitations. No PND. No orthopnea. GASTROINTESTINAL: No abdominal pain. No nausea or vomiting. No diarrhea or constipation. No hematemesis. No hematochezia. GENITOURINARY: No urgency. No frequency. No dysuria. No hematuria. No obstructive symptoms. No discharge. No pain. No significant abnormal bleeding. MUSCULOSKELETAL: No musculoskeletal pain; no joint swelling. NEUROLOGICAL: No headache. No neck pain. No syncope. No seizures. No dizziness. PSYCHIATRIC: Not anxious. No depression. No suicidal thoughts. No homicidal thoughts. SKIN: No rash. No lesions. No wounds. ENDOCRINE: No unexplained weight loss. No weight gain. HEMATOLOGIC/LYMPHATIC: No anemia. No purpura. No petechiae. No prolonged or excessive bleeding. No palpable lymph nodes. PHYSICAL EXAMINATION: GENERAL: The patient is in no distress. VITAL SIGNS: Temperature 97.6, pulse 90, respiratory rate 18, blood pressure 126/64, pulse ox 98% . HEENT: Head normocephalic, atraumatic. Eyes: Extraocular muscles are intact. Pupils are equal, round and reactive to light and accommodation. Ears: No lesions. Nose appeared normal. Throat: No exudate or erythema. NECK: Supple. LUNGS: Decreased breath sounds but clear. HEART: S1, S2, no S3. No murmurs. No cyanosis or clubbing. No ascites. Pulses: Dorsalis pedis and posterior tibial pulses +1 to +2 bilaterally. ABDOMEN: Soft. Bowel sounds active. EXTREMITIES: No edema. Full range of motion of all extremities, equal. NEUROLOGIC: No focal deficit. Cranial nerves II through XII are grossly intact. No headache. No double vision. SKIN: Not dry. Intact. Turgor - normal. LYMPHATIC: No palpable lymph nodes/no lymphedema. MUSCULOSKELETAL: Normal joints with no swelling. Muscle tone is normal. LABS: Hemoglobin 10.6, hematocrit 31, WBC 1,600, platelet count has increased to 99,000, creatinine 0.7, BUN 9, potassium 3.6, GFR is 68. ASSESSMENT: Pneumonitis viral infection with leukopenia, thrombocytopenia is better. Hemoglobin and hematocrit are stable. PLAN: 1. Continue to encourage patient to eat. 2. Patient is doing to be discharged home. 3. Continue medications except discontinue Losartan and Coreg to be reduced to 3.125 and Lanoxin to be given to control the heart rate and is to be given 0.125. Condition: Stable. Code Status: DNR TIME SPENT: More than 35 minutes. Plan and coordination of the patient's care discussed in the presence of nurse. EMILY
--- NOTE | 2022-11-24 16:46 | DS ---
DATE OF SERVICE: 11/22/22 FINAL DIAGNOSIS: 1. INFECTION WITH PROBABLE PNEUMONITIS 2. MEDIASTINAL LYMPHADENOPATHY, COULD BE REACTIVE OR FROM LYMPHOMA 3. THROMBOCYTOPENIA COULD BE RELATED TO MYELODYSPLASTIC SYNDROME WITH ANEMIA FROM VIRAL INFECTION 4. MALNUTRITION 5. HEPATITIS, ETIOLOGY UNKNOWN, COULD BE FROM VIRAL INFECTION 6. SEVERE OSTEOARTHRITIS 7. ATRIAL FIBRILLATION 8. CHRONIC LUNG DISEASE 9. HISTORY OF HYPERTENSION 10.GASTROESOPHAGEAL REFLUX DISEASE 11. DEMENTIA DISCHARGE INSTRUCTIONS: Followup appointment as scheduled November 28 for follow up. MEDICATIONS AT DISCHARGE: Levothyroxine Famotidine Oxygen as needed at home Hydrocodone Diazepam Meclizine NEW PRESCRIPTIONS: Lanoxin 0.125 five days a week Apixaban 2.5 twice a day Carvedilol new dose 3.125 PO BID DISCONTINUED MEDICATIONS: Losartan LABS ON DISCHARGE: Hemoglobin 10.6, hematocrit 31.9, WBC 1,600, platelet count 99,000, creatinine 0.7, BUN 9, potassium 3.6, ALT 93, AST 174 Scan of the chest showed mediastinal lymphadenopathy. Ultrasound of the liver was unremarkable. CT scan of the abdomen practically unremarkable with no acute findings, only lymphadenopathy. HOSPITAL COURSE: 82 year old white female hospitalized with weakness, inability to eat, cough. Patient had evidence of mild pneumonitis, could be viral. Patient's differential were practically normal in acceptable range just a couple of months ago; now patient has leukopenia, thrombocytopenia. Sudden onset could be from viral etiology. CT of the chest and abdomen showed mediastinal lymphadenopathy raising the possibility of lymphoma. Patient's WBC count has practically stayed the same but thrombocytopenia is a lot better. Patient's appetite has improved and her mental status has improved. Patient's appetite is somewhat better. Patient was put on Lanoxin to control her heart rate and Losartan was discontinued because of hypotension. Coreg was also reduced because of that. At the time of discharge patient's condition was stable. Patient is DNR. The family doesn't want her to be seen by any consultants especially hematology or oncology at the present time. A discussion of that will be done at follow up at the office. TIME SPENT: 70 minutes EMILY
--- NOTE | 2022-11-24 16:48 | PN ---
11/16/22 LEVEL 5 11/17/22 THRU 11/21/22 INTERMEDIATE 11/22/22 DISCHARGE MTDD
== END 2022-11-22 13:32 | disposition home or self-care (01) | DRG 193 ==
LOC: ED 21:53 → MEDSURG B 11-16 02:33
PROVIDERS: ADMIT Hospitalist; ATTEND Internal Medicine
DX: E46 Unspecified protein-calorie malnutrition; D72.819 Decreased white blood cell count, unspecified; I25.10 Atherosclerotic heart disease of native coronary artery without angina pectoris; E53.8 Deficiency of other specified B group vitamins; N20.0 Calculus of kidney; J18.9 Pneumonia, unspecified organism; D64.9 Anemia, unspecified; I71.40 Abdominal aortic aneurysm, without rupture, unspecified; K21.9 Gastro-esophageal reflux disease without esophagitis; R74.01 Elevation of levels of liver transaminase levels; K58.9 Irritable bowel syndrome, unspecified; D69.6 Thrombocytopenia, unspecified; R19.7 Diarrhea, unspecified; E55.9 Vitamin D deficiency, unspecified; A41.9 Sepsis, unspecified organism; R50.9 Fever, unspecified; I10 Essential (primary) hypertension; K57.30 Diverticulosis of large intestine without perforation or abscess without bleeding; E03.9 Hypothyroidism, unspecified; I48.91 Unspecified atrial fibrillation; Z95.0 Presence of cardiac pacemaker; C85.28 Mediastinal (thymic) large B-cell lymphoma, lymph nodes of multiple sites; Z79.899 Other long term (current) drug therapy